=== PATIENT | male | born 1980 | race Caucasian/White ===

== ENCOUNTER 2016-07-22 16:16 | Inpatient (IN) | payer BC ==
[~2016-07-22] VITALS: Ht 172.7 cm; Wt 74.9 kg
[~2016-07-22 16:16] MED LIST: LACO100T2 PO; OMEP40CA52 PO; ONDA-55 PO; OXCA300T18 PO
--- OUTSIDE RECORDS SUMMARY | 2016-07-22 16:23 | XMS REPORT | Continuity of Care Document ---
Author Author [facility] Organization [facility] Address Unknown Phone Unavailable Support Name Relationship Address Phone RADHA TERESA DO Caregiver [address] [place] [phone] DENISE GAFFNEY MD Caregiver [address] [place] [phone] USMAN MILLER Next Of Kin [address] [address] Insurance Providers Payer Name Policy Number Subscriber Name Relationship [facility] [id number] Iliana Miller 17 Self Advance Directives Directive Response Recorded Date/Time Advanced Directives Type None 11/28/13 2:51pm Ordered Resuscitation Status Full Code 11/28/13 3:20pm Chief Complaint and Reason for Visit Chief Complaint NAUSEA,VOMITING, ACUTE DEHYDRATION Reason for Visit Nausea with Vomiting Dehydration Problems Medical Problems Problem Onset Date Status Nausea with Vomiting Unknown Active Dehydration Unknown Active Medications Medication Dose Route Sig Days/Qty Instructions Order Date Discontinued Date Status Oxcarbazepine 150 Mg PO TWICE A DAY 06/02/11 06/02/13 Discontinued Social History Social History Problem Response Recorded Date/Time Smoking Status Current every day smoker 11/28/2013 2:51pm Chewing Tobacco Status No 11/28/2013 10:10am Hx Substance Use No 11/28/2013 10:10am Hx Alcohol Use Y DAILY 11/28/2013 10:10am Has the pt used tobacco in the last 12 months Yes 11/28/2013 2:51pm Query Response Start Date Stop Date Smoking Status Current every day smoker Hospital Discharge Instructions Instructions: Care Instructions: Reason for Hospitalization: DEHYDRATION,GASTROENTERITIS, ELEVATED AMYLASE/LIPASE I was in the hospital because (patient own words): CAUGHT THE STOMACH BUG Follow Up Appointments: Follow up in 1 week. Need to do CMP, amylase and lipase in the office. Follow up appointment made on 12/05/13 at 10:00am with Dr. Teresa Patient Instructions: Drink lots of fluids. Rest. Condition at time of discharge: Good Care Plan Discharge Patient: Goal: Understand discharge plan Patient Instructions: see patient instructions Discharge Patient: Goal: Understand discharge plan Patient Instructions: see patient instructions Problem: see problem list Call your Surgeon if you have: 1.Chest pain, difficulty breathing, fever>100.5 degrees, chills, heart rate >100, confusion, or persistent nausea/vomitting. 2.Severe pain, swelling, redness, or warmth in either of your legs. 3.During office hours, call [phone] 4. After hours, please call [facility] at [phone], and have the separator operator shellfish meats page your Surgeon IN THE EVENT OF AN EMERGENCY, seek medical care at the nearest Emergency Room Condition at time of discharge: Good Care Plan Discharge Patient: Goal: Maximum functional status Patient Instructions: see patient instructions Condition at time of discharge: Good Care Plan Discharge Patient: Goal: Understand discharge plan Patient Instructions: see patient instructions Goal: Understand discharge plan Patient Instructions: see patient instructions Plan of Care Discharge Date 11/29/13 2:55pm Disposition 01 DISCHARGED HOME, SELF-CARE Instructions/Education Provided DI for Dehydration -- Adult Prescriptions See Medications Section Functional Status Query Response Date Recorded Physical Hygiene Self November 29, 2013 1:27pm Disabilities None November 29, 2013 1:27pm Devices Used None November 29, 2013 1:27pm Dressing Self November 29, 2013 1:27pm Ambulation Self November 29, 2013 1:27pm Diet Self November 29, 2013 1:27pm Mental Status Alert Oriented November 29, 2013 1:27pm Disabilities None November 29, 2013 1:27pm Devices Used None November 29, 2013 1:27pm Physical Hygiene Self November 29, 2013 1:27pm Dressing Self November 29, 2013 1:27pm Ambulation Self November 29, 2013 1:27pm Diet Self November 29, 2013 1:27pm Allergies, Adverse Reactions, Alerts Allergen Type Severity Reaction Status Last Updated No Known Allergies Active 11/28/13 Immunizations Name Given Type Hx Influenza Vaccination No Historical Hx Pneumococcal Vaccination No Historical Hx Influenza Vaccination No Historical Vital Signs Acute Vital Signs Vital Response Date/Time Temperature (Fahrenheit) 97.2 deg F (96.8 - 99.1) Temperature (Calculated Celsius) 36.54178 degrees C (36.0 - 37.3) Temperature Source Oral Pulse Rate (adult) 70 bpm (60 - 100) Respiratory Rate 17 breaths/min (10 - 20) Height 5 ft 9 in Weight 158 lb Body Mass Index 23.0 kg/m^2 Results Test Source Date Result Interp. Ref. Range Comments Acetone Level June 02, 2013 9:35am 1+ - Alanine Aminotransferase (ALT/SGPT) November 29, 2013 4:40am 128 U/L H 21- 72 Albumin November 29, 2013 4:40am 3.2 G/DL L 3.5-5.0 Albumin/Globulin Ratio November 29, 2013 4:40am 1.5 RATIO N 1.1-2.2 Alcohol, Quantitative November 28, 2013 10:34am 36 MG/DL - Alkaline Phosphatase November 29, 2013 4:40am 58 U/L DN 38-126 Amylase Level November 29, 2013 4:40am 81 U/L DN 30-110 Anion Gap November 29, 2013 4:40am 10 MEQ/L N 5-15 Aspartate Amino Transf (AST/SGOT) November 29, 2013 4:40am 201 U/L DH 17-59 BUN/Creatinine Ratio November 29, 2013 4:40am 16 RATIO N 6-26 Band Neutrophils # November 28, 2013 10:09am 0.9 T/MM3 - Band Neutrophils % November 28, 2013 10:09am 6.0 % N 0-6 Basophils # (Auto) November 29, 2013 4:40am 0.0 T/MM3 N 0-0.2 Basophils (%) (Auto) November 29, 2013 4:40am 0.6 % N 0-2 Blood Urea Nitrogen November 29, 2013 4:40am 18.0 MG/DL N 9-20 Calcium Level November 29, 2013 4:40am 8.4 MG/DL DN 8.4-10.2 Calculated Osmolality November 29, 2013 4:40am 261 MOSM/KG N 261-280 Carbon Dioxide Level November 29, 2013 4:40am 29 MEQ/L DN 22-30 Chemistry Specimen Hemolysis November 29, 2013 4:40am < 15 0-25 0-25: No Hemolysis.26-70: Slight Hemolysis - can falsely elevate K and Urine Protein. 71-285: Moderate Hemolysis - can falsely elevate K, Troponin I, CA 19-9, PTH, CSF GLucose, and Urine Protein, and can falsely decrease Phenytoin. 286-999: Gross Hemolysis - can falsely elevate K, Troponin I, CA 19-9, PTH, CSF Glucose, and Urine Protine, and can falsely decrease Phenytoin. Recommend specimen recollection. Chloride Level November 29, 2013 4:40am 96 MEQ/L DL 98-107 Conjugated Bilirubin June 01, 2011 11:00pm 0.00 MG/DL N 0.00-0.30 Creatinine November 29, 2013 4:40am 1.1 MG/DL DN 0.8-1.5 Eosinophils # (Auto) November 29, 2013 4:40am 0.0 T/MM3 N 0-0.5 Eosinophils (%) (Auto) November 29, 2013 4:40am 0.6 % N 0-4 Globulin November 29, 2013 4:40am 2.2 G/DL L 2.4-3.6 Glomerular Filtration Rate Calc November 29, 2013 4:40am 77 - Glucose Level November 29, 2013 4:40am 85 MG/DL N 75-110 Group A Streptococcus Screen June 02, 2013 12:05pm Negative - Strep culture confirmation to follow Hematocrit November 29, 2013 4:40am 38.1 % DL 41-53 Hemoglobin November 29, 2013 4:40am 12.8 GM/DL DL 13.5-17.5 Icterus Index November 29, 2013 4:40am < 2 0-7 Immature Granulocyte # (Auto) November 29, 2013 4:40am 0.03 T/MM3 N 0.00- 0.03 Immature Granulocyte % (Auto) November 29, 2013 4:40am 0.4 % N 0.0-0.5 Lab Scanned Report June 04, 2010 10:42pm LAB TEST FORM REQUEST [id number] - Lipase November 29, 2013 12:15pm 561 U/L H 23-300 Lymphocytes # (Auto) November 29, 2013 4:40am 1.2 T/MM3 N 1-4.8 Lymphocytes # (Manual) November 28, 2013 10:09am 1.2 T/MM3 N 1-4.8 Lymphocytes % (Manual) November 28, 2013 10:09am 8.0 % L 23-45 Lymphocytes (%) (Auto) November 29, 2013 4:40am 17.7 % L 23-45 Mean Corpuscular Hemoglobin November 29, 2013 4:40am 33.9 UUG N 26-34 Mean Corpuscular Hemoglobin Concent November 29, 2013 4:40am 33.6 GM/DL N 31 -37 Mean Corpuscular Volume November 29, 2013 4:40am 100.8 UM3 H 80-100 Mean Platelet Volume November 29, 2013 4:40am 10.5 UM3 N 9.4-12.4 Monocytes # (Auto) November 29, 2013 4:40am 0.9 T/MM3 H 0-0.8 Monocytes # (Manual) November 28, 2013 10:09am 1.1 T/MM3 H 0-0.8 Monocytes % (Manual) November 28, 2013 10:09am 7.0 % N 0-9.0 Monocytes (%) (Auto) November 29, 2013 4:40am 13.0 % H 0-9.0 UD-Wgq-B-Type Natriuretic Peptide June 02, 2011 4:35am 454 PG/ML H 0- 175 Rule in cut points: <50 years old=450; 50-75 years old=900; >75 years old=1800; When utilizing ProBNP rule-in cut points, adjustment for impaired renal function is typically not required. Neutrophils # (Auto) November 29, 2013 4:40am 4.7 T/MM3 N 1.8-7.7 Neutrophils # (Manual) November 28, 2013 10:09am 11.9 T/MM3 H 1.8-7.7 Neutrophils % (Manual) November 28, 2013 10:09am 79.0 % H 33-66 Neutrophils (%) (Auto) November 29, 2013 4:40am 67.7 % H 33-66 Platelet Count November 29, 2013 4:40am 106 T/MM3 L 130-400 Potassium Level November 29, 2013 4:40am 3.8 MEQ/L DN 3.6-5 RDW Standard Deviation November 29, 2013 4:40am 44.8 FL N 36.9-50.2 Red Blood Count November 29, 2013 4:40am 3.78 M/MM3 L 4.50-5.90 Sodium Level November 29, 2013 4:40am 135 MEQ/L N 134-144 Total Bilirubin November 29, 2013 4:40am 1.60 MG/DL H 0.20-1.30 Total Protein November 29, 2013 4:40am 5.4 G/DL L 6.3-8.2 Turbidity November 29, 2013 4:40am < 20 0-20 Unconjugated Bilirubin June 01, 2011 11:00pm 1.20 MG/DL H 0.00-1.10 Urine Bacteria November 28, 2013 12:35pm 1+ H - Has specimen been collected /obtained? Y Urine Bilirubin November 28, 2013 12:35pm 1+ H - Has specimen been collected/obtained? Y Urine Blood November 28, 2013 12:35pm 3+ H - Has specimen been collected/ obtained? Y Urine Collection Type November 28, 2013 12:35pm Voided-not cc-midstr - Has specimen been collected/obtained? Y Urine Color November 28, 2013 12:35pm Yellow - Has specimen been collected/obtained? Y Urine Culture Indicated November 28, 2013 12:35pm Cult not indicated - Has specimen been collected/obtained? Y Urine Glucose (UA) November 28, 2013 12:35pm Negative - Has specimen been collected/obtained? Y Urine Hyaline Casts November 28, 2013 12:35pm 30-50 /LPF - Has specimen been collected/obtained? Y Urine Ketones November 28, 2013 12:35pm 3+ H - Has specimen been collected/ obtained? Y Urine Leukocyte Esterase November 28, 2013 12:35pm Negative - Has specimen been collected/obtained? Y Urine Mucus June 02, 2013 11:40am Present - Has specimen been collected/obtained? Y Urine Nitrite November 28, 2013 12:35pm Negative - Has specimen been collected/obtained? Y Urine Protein November 28, 2013 12:35pm 2+ H - Has specimen been collected/ obtained? Y Urine RBC November 28, 2013 12:35pm 3-5 /HPF H - Has specimen been collected/obtained? Y Urine Specific [place] November 28, 2013 12:35pm >=1.030 H - Has specimen been collected/obtained? Y Urine Squamous Epithelial Cells June 02, 2013 11:40am 5-10 - Has specimen been collected/obtained? Y Urine Turbidity November 28, 2013 12:35pm Clear - Has specimen been collected/obtained? Y Urine Urobilinogen November 28, 2013 12:35pm 0.2 EU/DL - Has specimen been collected/obtained? Y Urine WBC November 28, 2013 12:35pm 0-1 /HPF - Has specimen been collected/obtained? Y Urine pH November 28, 2013 12:35pm 6.0 - Has specimen been collected/ obtained? Y White Blood Count November 29, 2013 4:40am 6.9 T/MM3 DN 4.5-11.0 Group A Streptococcus Culture Throat June 02, 2013 12:19pm Urine Culture Urine, Clean Catch-Midstream June 02, 2013 12:04pm Gram Positive [place] Procedures No known history of procedures. Encounters Encounter Location Date/Time Discharged Inpatient [facility] 11/28/13 1:00pm Recent Diagnosis Nausea with Vomiting Dehydration
--- OUTSIDE RECORDS SUMMARY | 2016-07-22 16:23 | XMS REPORT | Continuity of Care Document ---
Author Author [facility] Organization [place] [facility] Address Unknown Phone Unavailable Support Name Relationship Address Phone GILBERTO JOHNSON MD Caregiver [address] [place] [address] Unavailable DENISE GAFFNEY MD Caregiver [address] [place] [address] Unavailable AILEEN ONEILL Next Of Kin [address] [place], [place] [id number] Insurance Providers Guarantor TeresitaIliana Michi Address [address] [place] [address] Email [email or web address] Policy Number [id number] Subscriber's Name Iliana Miller Relationship 18 Self Group Number [id number] Advance Directives Directive Response Recorded Date/Time Advanced Directives Type None 11/30/13 10:45pm Ordered Resuscitation Status Full Code 11/28/13 3:20pm Chief Complaint and Reason for Visit Chief Complaint Nausea,Vomiting,Diarrhea Reason for Visit Seizure disorder Dehydration Problems Active Problems Medical Problem Onset Date Status Dehydration Unknown Acute Nausea with Vomiting Unknown Acute Seizure Unknown Acute Seizure Unknown Acute Past Problems Medical Problem Onset Date Elevated LFTs Unknown Seizure disorder Unknown UTI (urinary tract infection) Unknown Medications Current Home Medications Medication Dose Units Route Directions Days Qty Instructions Start Date Lacosamide (Vimpat) 100 Mg Tablet 100 Mg Oral Twice A Day Omeprazole 40 Mg Capsule. 40 Mg Oral Before Breakfast 07/12/16 Ondansetron Hcl 4 Mg Tablet 4 Mg Oral Four Times Daily as needed for Nausea &/Or Vomiting 07/12/16 Oxcarbazepine 300 Mg Tablet 1 Tab Oral Twice A Day 60 Tablet Past Home Medications Medication Directions Ordered Status Oxcarbazepine (Trileptal) 150 Mg Tablet, 150 Mg Oral Twice A Day 06/02/11 Discontinued Social History Social History Problem Response Recorded Date/Time Onset Date Status Chewing Tobacco Status No 11/30/2013 10:45pm Not Applicable Not Applicable Hx Substance Use No 07/12/2016 2:32pm Not Applicable Not Applicable Hx Alcohol Use Y 2 DAYS AGO - FEW TIMES A WEEK 07/12/2016 2:32pm Not Applicable Not Applicable Has the pt used tobacco in the last 12 months Yes 11/28/2013 2:51pm Not Applicable Not Applicable Tobacco Usage smoke 11/28/2013 10:43am Not Applicable Not Applicable Query Response Start Date Stop Date Smoking Status Current every day smoker Hospital Discharge Instructions No hospital discharge instructions. Plan of Care Discharge Date 07/12/16 4:23pm Disposition 01 DISCHARGED HOME, SELF-CARE Condition at Discharge Improved Instructions/Education Provided Acute Nausea and Vomiting (ED) Recurrent Seizures in Adults (ED) Forms Provided Return to Work/School Permit Prescriptions See Medication Section Referrals GILBERTO JOHNSON MD Address: [address] [place] [address] [place] [phone] Additional Instructions/Education 1. You need to cut down on your dose of Vimpat to 50 mg twice daily for seven more days, then discontinue. (50 mg is one half of the 100 mg tablets you currently have) 2. Fill prescription for Trileptal and start taking that as soon as you fill it. It is okay to take the reduced dose of Vimpat and Trileptal at the same time. 3. Take the Zofran you have at home as needed for nausea/vomiting. Follow up with your primary care doctor or Dr. Plummer for any further problems you have with these symptoms. 4. Focus on drinking clear liquids for the next 24 hours to help your stomach settle down. Care Plan and Goals Physician Care Plan Problem: Dehydration, Seizure disorder Goal: Follow up with primary care provider Instructions: Take medications and follow care plan as discussed/written Functional Status No functional status results. Allergies, Adverse Reactions, Alerts No known allergies. Immunizations Query Response on File Recorded Date/Time Hx Influenza Vaccination No 11/30/13 10:45pm Hx Pneumococcal Vaccination No 11/30/13 10:45pm Hx Influenza Vaccination No 11/30/13 10:45pm Influenza Vaccine Hx NOT YET REC'D THIS SEASON 07/12/16 2:32pm Vital Signs Acute Vital Signs Vital Response Date/Time Temperature (Fahrenheit) 97.5 deg F (96.8 - 99.1) 07/12/2016 4:23pm Temperature (Calculated Celsius) 36.44010 degrees C (36.0 - 37.3) 07/12/2016 4:23pm Pulse Rate (adult) 92 bpm (60 - 100) 07/12/2016 4:23pm Respiratory Rate 16 breaths/min (10 - 20) 07/12/2016 4:23pm O2 Sat by Pulse Oximetry 95 % (90 - 100) 07/12/2016 4:23pm Blood Pressure 128/78 mm Hg 07/12/2016 4:23pm Height (Feet) 5 feet 07/12/2016 1:30pm Height (Inches) 9.00 inches 07/12/2016 1:30pm Weight (Kilograms) 73.000 kg 07/12/2016 1:30pm Body Mass Index (BMI) 23.0 07/12/2016 1:30pm Results Laboratory Results Test Name Result Units Flags Reference Collection Date/Time Result Date/ Time Comments Total Bilirubin 2.80 MG/DL H 0.20-1.30 04/21/2016 10:0104/21/2016 10: 18am Alkaline Phosphatase 76 U/L 38-126 04/21/2016 10:0104/21/2016 10: 18am Total Protein 7.7 G/DL 6.3-8.2 04/21/2016 10:0104/21/2016 10:18am Albumin 4.8 G/DL 3.5-5.0 04/21/2016 10:0104/21/2016 10:18am Globulin 2.9 G/DL 2.4-3.6 04/21/2016 10:0104/21/2016 10:18am Albumin/Globulin Ratio 1.7 RATIO 1.1-2.2 04/21/2016 10:01am 04/21/2016 10:18am Aspartate Amino Transf (AST/SGOT) 214 U/L H 17-59 04/21/2016 10:01am 10:18am Alanine Aminotransferase (ALT/SGPT) 122 U/L H 21-72 04/21/2016 10:01am 04/21/2016 10:18am Alcohol, Quantitative <10 MG/DL <10 04/21/2016 10:0104/21/2016 10: 18am Urine Collection Type CLEANCATCH-MIDSTREAM 04/21/2016 10:0104/21 10:29am Urine Color ORANGE YELLOW 04/21/2016 10:0104/21/2016 10:29am Urine Turbidity CLEAR CLEAR 04/21/2016 10:0104/21/2016 10:29am Urine Specific [place] 1.030 H 1.015-1.025 04/21/2016 10:012015 10:29am Urine pH 6.0 5.0-8.0 04/21/2016 10:0104/21/2016 10:29am Urine Leukocyte Esterase NEGATIVE NEGATIVE 04/21/2016 10:012015 10:29am Urine Nitrite POSITIVE A NEGATIVE 04/21/2016 10:0104/21/2016 10: 29am Urine Protein 2+ A NEGATIVE 04/21/2016 10:0104/21/2016 10:29am Urine Glucose (UA) NEGATIVE NEGATIVE 04/21/2016 10:0104/21/2016 10 :29am Urine Ketones NEGATIVE NEGATIVE 04/21/2016 10:0104/21/2016 10: 29am Urine Urobilinogen NORMAL EU/DL NORMAL 04/21/2016 10:0104/21/2016 10 :29am Urine Bilirubin 1+ A NEGATIVE 04/21/2016 10:0104/21/2016 10:29am Urine Blood 2+ A NEGATIVE 04/21/2016 10:04/21/2016 10:29am Urine WBC 0-1 /HPF 0-5 04/21/2016 10:0104/21/2016 10:33am Urine RBC 0-1 /HPF 0-3 04/21/2016 10:0104/21/2016 10:33am Urine Squamous Epithelial Cells NONE SEEN 04/21/2016 10:012015 10:33am Urine Bacteria 3+ H NEGATIVE 04/21/2016 10:0104/21/2016 10:33am Urine Mucus PRESENT 04/21/2016 10:0104/21/2016 10:33am Urine Hyaline Casts 1-3 /LPF 04/21/2016 10:0104/21/2016 10:33am Urine Culture Indicated CULT REFLEXED &SETUP 04/21/2016 10:01 10:33am Levetiracetam (Keppra) Level 3.5 mcg/mL L 04/21/2016 10:01am 2015 2:21pm Reference Range: 12.0 - 46.0 ADDITIONAL INFORMATION This test was developed and its performance characteristics determined by [facility] in a manner consistent with CLIA requirements. This test has not been cleared or approved by the U.S. Food and Drug Administration. Test Performed by: [place] [address] First Sampler: Thad Sanchez II, M.D., Ph.D. [place] [address] Clinique Counter Manager Laura Norman MD White Blood Count 5.6 T/MM3 4.5-11.0 07/12/2016 2:1007/12/2016 2: 19pm Red Blood Count 4.43 M/MM3 L 4.50-5.90 07/12/2016 2:07/12/2016 2: 19pm Hemoglobin 15.4 GM/DL 13.5-17.5 07/12/2016 2:07/12/2016 2:19pm Hematocrit 43.6 % 41-53 07/12/2016 2:07/12/2016 2:19pm Mean Corpuscular Volume 98.4 UM3 80-100 07/12/2016 2:07/12/2016 2: 19pm Mean Corpuscular Hemoglobin 34.8 UUG H 26-34 07/12/2016 2:2016 2:19pm Mean Corpuscular Hemoglobin Concent 35.3 GM/DL 31-37 07/12/2016 2:07/12/2016 2:19pm RDW Standard Deviation 52.7 FL H 36.9-50.2 07/12/2016 2:07/12/2016 2:19pm Platelet Count 140 T/MM3 130-400 07/12/2016 2:07/12/2016 2:19pm Mean Platelet Volume 9.7 UM3 9.4-12.4 07/12/2016 2:07/12/2016 2: 19pm Neutrophils (%) (Auto) 54.2 % 33-66 07/12/2016 2:07/12/2016 2: 19pm Lymphocytes (%) (Auto) 30.5 % 23-45 07/12/2016 2:07/12/2016 2: 19pm Monocytes (%) (Auto) 14.2 % H 0-9.0 07/12/2016 2:07/12/2016 2:19pm Eosinophils (%) (Auto) 0.0 % 0-4 07/12/2016 2:07/12/2016 2:19pm Basophils (%) (Auto) 0.7 % 0-2 07/12/2016 2:07/12/2016 2:19pm Immature Granulocyte % (Auto) 0.4 % 0.0-0.5 07/12/2016 2:2016 2:19pm Absolute Neutrophils (auto) 3.0 T/MM3 1.8-7.7 07/12/2016 2:2016 2:19pm Absolute Lymphocytes (auto) 1.7 T/MM3 1-4.8 07/12/2016 2:2016 2:19pm Absolute Monocytes (auto) 0.8 T/MM3 0-0.8 07/12/2016 2:07/12/2016 2:19pm Absolute Eosinophils (auto) 0.0 T/MM3 0-0.5 07/12/2016 2:2016 2:19pm Absolute Basophils (auto) 0.0 T/MM3 0-0.2 07/12/2016 2:07/12/2016 2:19pm Absolute Immature Granulocyte (auto 0.02 T/MM3 0.00-0.03 07/12/2016 2: 07/12/2016 2:19pm Icterus Index < 2 0-7 07/12/2016 2:07/12/2016 2:28pm Chemistry Specimen Hemolysis < 15 0-25 07/12/2016 2:07/12/2016 2 :28pm 0-25: Specimen Exhibited No Hemolysis. Turbidity < 20 0-20 07/12/2016 2:07/12/2016 2:28pm Sodium Level 134 MEQ/L 134-144 07/12/2016 2:10pm 07/12/2016 2:28pm Potassium Level 3.2 MEQ/L L 3.6-5 07/12/2016 2:10pm 07/12/2016 2:28pm Chloride Level 86 MEQ/L L 98-107 07/12/2016 2:10pm 07/12/2016 2:28pm Carbon Dioxide Level 27 MEQ/L 22-30 07/12/2016 2:1007/12/2016 2: 28pm Anion Gap 21 MEQ/L H 5-15 07/12/2016 2:10pm 07/12/2016 2:28pm Blood Urea Nitrogen 12.0 MG/DL 9-20 07/12/2016 2:10pm 07/12/2016 2: 28pm Creatinine 0.8 MG/DL 0.8-1.5 07/12/2016 2:10pm 07/12/2016 2:28pm BUN/Creatinine Ratio 15 RATIO 6-26 07/12/2016 2:1007/12/2016 2:28pm Glomerular Filtration Rate Calc 109 07/12/2016 2:1007/12/2016 2: 28pm Glucose Level 97 MG/DL 75-110 07/12/2016 2:10pm 07/12/2016 2:28pm Calculated Osmolality 258 MOSM/KG L 261-280 07/12/2016 2:10pm 2016 2:28pm Calcium Level 8.9 MG/DL 8.4-10.2 07/12/2016 2:10pm 07/12/2016 2:28pm Microbiology Results Procedure Source Organism/Result Collection Date/Time Result Date/Time Result Status Urine Culture Urine, Clean Catch-Midstream MIXED EDWARD 04/21/2016 10:33am 04/23/2016 8:02am Final Procedures Procedure Status Date Provider(s) Routine venipuncture Completed 04/21/16 Comprehen metabolic panel Completed 04/21/16 Drug scrn suyapa levetiracetam Completed 04/21/16 Drug screen quantalcohols Completed 04/21/16 Urinalysis auto w/scope Completed 04/21/16 Complete cbc w/auto diff wbc Completed 04/21/16 Urine culture/colony count Completed 04/21/16 Hydrate iv infusion add-on Completed 04/21/16 Ther/proph/diag inj iv push Completed 04/21/16 Emergency dept visit Completed 04/21/16 LEVETIRACETAM INJ 500MF/5ML Completed 04/21/16 [id number]"INFUSION, NORMAL SALINE SOLUTION , 250 CC" Completed 04/21/16 Encounters Encounter Location Arrival/Admit Date Discharge/Depart Date Attending Provider Departed Emergency Room [facility] 07/12/16 1:28pm 07/12/16 4: 23pm DENISE GAFFNEY MD Departed Emergency Room [facility] 04/21/16 9:28am 04/21/16 10: 55am DEBI CHUNG DO Recent Diagnosis
--- OUTSIDE RECORDS SUMMARY | 2016-07-22 16:23 | XMS REPORT | Continuity of Care Document ---
Author Author [facility] Organization [facility] Address Unknown Phone Unavailable Support Name Relationship Address Phone OLGA LIDIA BLANCHARD MD Caregiver [facility] [address] [place] [address] Unavailable ER, DOC Caregiver Unknown Unavailable RADHA TERESA DO Caregiver [address] [place] [phone] USMAN MILLER Next Of Kin [address] [place] [address] Insurance Providers Payer Name Policy Number Subscriber Name Relationship [facility] [id number] Iliana Miller 17 Self Advance Directives Directive Response Recorded Date/Time Advanced Directives Type None 11/30/13 10:45pm Ordered Resuscitation Status Full Code 11/28/13 3:20pm Chief Complaint and Reason for Visit Chief Complaint Nausea,Vomiting,Diarrhea Reason for Visit [id number] WITH VOMITING Dehydration Problems Medical Problems Problem Onset Date Status Nausea with Vomiting Unknown Active Dehydration Unknown Active Seizure Unknown Active Seizure Unknown Active Medications Medication Dose Route Sig Days/Qty Instructions Order Date Discontinued Date Status Oxcarbazepine 150 Mg PO TWICE A DAY 06/02/11 06/02/13 Discontinued Social History Social History Problem Response Recorded Date/Time Smoking Status Current every day smoker 11/30/2013 10:45pm Chewing Tobacco Status No 11/30/2013 10:45pm Hx Substance Use No 11/30/2013 10:45pm Hx Alcohol Use Y quit first week of November 2013 11/30/2013 10:45pm Has the pt used tobacco in the [...] of Care Discharge Date 11/29/13 2:55pm Disposition 02 TO [place] [facility] [place] Condition at Discharge Stable Instructions/Education Provided DI for Dehydration -- Adult Prescriptions See Medications Section Referrals RADHA TERESA DO Functional Status Query Response Date Recorded Physical Hygiene Self November 30, 2013 10:45pm Disabilities None November 30, 2013 10:45pm Ambulation Self November 30, 2013 10:45pm Diet Self November 30, 2013 10:45pm Mental Status Alert Oriented November 30, 2013 10:45pm Disabilities None November 30, 2013 10:45pm Physical Hygiene Self November 30, 2013 10:45pm Ambulation Self November 30, 2013 10:45pm Diet Self November 30, 2013 10:45pm Allergies, Adverse Reactions, Alerts Allergen Type Severity Reaction Status Last Updated No Known Allergies Active 11/30/13 Immunizations Name Given Type Hx Influenza Vaccination No Historical Hx Pneumococcal Vaccination No Historical Hx Influenza Vaccination No Historical Vital Signs Acute Vital Signs Vital Response Date/Time Temperature (Fahrenheit) 97.7 deg F (96.8 - 99.1) Temperature (Calculated Celsius) 36.40350 degrees C (36.0 - 37.3) Pulse Rate (adult) 88 bpm (60 - 100) Respiratory Rate 16 breaths/min (10 - 20) O2 Sat by Pulse Oximetry 98 % (90 - 100) Blood Pressure 118/88 mm Hg Height 5 ft 9 in Weight 156 lb Body Mass Index 23.0 kg/m^2 Results Test Source Date Result Interp. Ref. Range Comments Acetone Level June 02, 2013 9:35am 1+ - Alanine Aminotransferase (ALT/SGPT) November 30, 2013 11:05pm 216 U/L H 21- 72 Albumin November 30, 2013 11:05pm 4.0 G/DL N 3.5-5.0 Albumin/Globulin Ratio November 30, 2013 11:05pm 1.5 RATIO N 1.1-2.2 Alcohol, Quantitative November 30, 2013 11:05pm <10 MG/DL - Alkaline Phosphatase November 30, 2013 11:05pm 81 U/L DN 38-126 Amylase Level November 29, 2013 4:40am 81 U/L DN 30-110 Anion Gap November 30, 2013 11:05pm 14 MEQ/L N 5-15 Aspartate Amino Transf (AST/SGOT) November 30, 2013 11:05pm 280 U/L H 17-59 BUN/Creatinine Ratio November 30, 2013 11:05pm 12 RATIO N 6-26 Band Neutrophils # November 28, 2013 10:09am 0.9 T/MM3 - Band Neutrophils % November 28, 2013 10:09am 6.0 % N 0-6 Basophils # (Auto) November 30, 2013 11:05pm 0.1 T/MM3 N 0-0.2 Basophils (%) (Auto) November 30, 2013 11:05pm 1.2 % N 0-2 Blood Urea Nitrogen November 30, 2013 11:05pm 11.0 MG/DL N 9-20 Calcium Level November 30, 2013 11:05pm 9.9 MG/DL DN 8.4-10.2 Calculated Osmolality November 30, 2013 11:05pm 254 MOSM/KG L 261-280 Carbon Dioxide Level November 30, 2013 11:05pm 24 MEQ/L N 22-30 Chloride Level November 30, 2013 11:05pm 93 MEQ/L L 98-107 Conjugated Bilirubin June 01, 2011 11:00pm 0.00 MG/DL N 0.00-0.30 Creatinine November 30, 2013 11:05pm 0.9 MG/DL DN 0.8-1.5 Eosinophils # (Auto) November 30, 2013 11:05pm 0.1 T/MM3 N 0-0.5 Eosinophils (%) (Auto) November 30, 2013 11:05pm 1.1 % N 0-4 Globulin November 30, 2013 11:05pm 2.7 G/DL N 2.4-3.6 Glucose Level November 30, 2013 11:05pm 134 MG/DL H 75-110 Group A Streptococcus Screen June 02, 2013 12:05pm Negative - Strep culture confirmation to follow Hematocrit November 30, 2013 11:05pm 42.5 % DN 41-53 Hemoglobin November 30, 2013 11:05pm 14.5 GM/DL DN 13.5-17.5 Lipase November 29, 2013 12:15pm 561 U/L H 23-300 Lymphocytes # (Auto) November 30, 2013 11:05pm 1.7 T/MM3 N 1-4.8 Lymphocytes # (Manual) November 28, 2013 10:09am 1.2 T/MM3 N 1-4.8 Lymphocytes % (Manual) November 28, 2013 10:09am 8.0 % L 23-45 Lymphocytes (%) (Auto) November 30, 2013 11:05pm 17.9 % L 23-45 Mean Corpuscular Hemoglobin November 30, 2013 11:05pm 33.3 UUG N 26-34 Mean Corpuscular Hemoglobin Concent November 30, 2013 11:05pm 34.1 GM/DL N 31-37 Mean Corpuscular Volume November 30, 2013 11:05pm 97.5 UM3 N 80-100 Mean Platelet Volume November 30, 2013 11:05pm 11.1 UM3 N 9.4-12.4 Monocytes # (Auto) November 30, 2013 11:05pm 1.3 T/MM3 H 0-0.8 Monocytes # (Manual) November 28, 2013 10:09am 1.1 T/MM3 H 0-0.8 Monocytes % (Manual) November 28, 2013 10:09am 7.0 % N 0-9.0 Monocytes (%) (Auto) November 30, 2013 11:05pm 13.3 % H 0-9.0 Neutrophils # (Auto) November 30, 2013 11:05pm 6.4 T/MM3 N 1.8-7.7 Neutrophils # (Manual) November 28, 2013 10:09am 11.9 T/MM3 H 1.8-7.7 Neutrophils % (Manual) November 28, 2013 10:09am 79.0 % H 33-66 Neutrophils (%) (Auto) November 30, 2013 11:05pm 65.9 % N 33-66 Platelet Count November 30, 2013 11:05pm 118 T/MM3 L 130-400 Potassium Level November 30, 2013 11:05pm 3.4 MEQ/L L 3.6-5 RDW Standard Deviation November 30, 2013 11:05pm 42.2 FL N 36.9-50.2 Red Blood Count November 30, 2013 11:05pm 4.36 M/MM3 L 4.50-5.90 Sodium Level November 30, 2013 11:05pm 131 MEQ/L L 134-144 Total Bilirubin November 30, 2013 11:05pm 0.90 MG/DL N 0.20-1.30 Total Protein November 30, 2013 11:05pm 6.7 G/DL N 6.3-8.2 Unconjugated Bilirubin June 01, 2011 11:00pm 1.20 [...] Has specimen been collected/obtained? Y Urine Specific [place] November 28, 2013 12:35pm >=1.030 H - [...] collected/ obtained? Y White Blood Count November 30, 2013 11:05pm 9.7 T/MM3 DN 4.5-11.0 Chemistry Specimen Hemolysis November 30, 2013 11:05pm < 15 0-25 0-25: No Hemolysis.26-70: Slight [...] can falsely decrease Phenytoin. Recommend specimen recollection. Lab Scanned Report June 04, 2010 10:42pm LAB TEST FORM REQUEST [id number] - Turbidity November 30, 2013 11:05pm < 20 0-20 Glomerular Filtration Rate Calc November 30, 2013 11:05pm 97 - Immature Granulocyte # (Auto) November 30, 2013 11:05pm 0.06 T/MM3 H 0.00- 0.03 Immature Granulocyte % (Auto) November 30, 2013 11:05pm 0.6 % H 0.0-0.5 Icterus Index November 30, 2013 11:05pm < 2 0-7 AQ-Qbc-H-Type Natriuretic Peptide June 02, 2011 4:35am 454 PG/ML H 0- 175 Rule in cut points: <50 years old=450; 50-75 years old=900; >75 years old=1800; When utilizing ProBNP rule-in cut points, adjustment for impaired renal function is typically not required. Group A Streptococcus Culture Throat June 02, 2013 12:19pm Urine Culture Urine, Clean Catch-Midstream June 02, 2013 12:04pm Gram Positive Chacorta Procedures No known history of procedures. Encounters Encounter Location Date/Time Departed Emergency Room [facility] 11/30/13 10:19pm Discharged Inpatient [facility] 11/28/13 1:00pm Recent Diagnosis
--- NOTE | 2016-07-22 16:38 | ERPDOC ---
Departure Disposition Decision Date: Jul 22, 2016 Disposition Decision Time: 19:43 (THIAGO DARNELL APRN) Disposition: 02 TO [facility] Impression Impression (THIAGO DARNELL APRN) Impression: Primary Impression: Encephalopathy Additional Impression: Hepatic steatosis Severity: Moderate (THIAGO DARNELL APRN) Condition: Stable Seen By: Mid-level only (THIAGO DARNELL APRN) Referrals: GILBERTO JOHNSON MD (Family) Problems/Meds/Labs Reviewed?: Yes Medications reviewed and manag: Yes (THIAGO DARNELL APRN) Follow up care ordered?: Yes Mental Status: Alert, Confused (THIAGO DARNELL APRN) HPI - General Medical General Chief Complaint: Altered Mental Status Stated Complaint: CONFUSION Time Seen by Provider: 16:36 Source: patient (take while performing trauma a with jaundice and everything helped in by ambulance, by private vehicle liver failure that) (THIAGO DARNELL APRN) Time Seen by Provider: 16:36 (SILVIANO EDEN DO) HPI - General Medical Initial Comments 35-year-old male brought to the ED by EMS with altered mental status. EMS reports that patient girlfriend reported that patient called her today wondering when she would be coming home to wrap [employer] presents. Patient arrives confused, oriented only to person. Patient on initial exam is jaundiced with scleral icterus. Patient has past medical history of alcohol abuse however patient states that he has not drank for 2 days. Patient has history of seizures was taking Keppra until May of this year and was started on Vimpat, which he took up until 4 days ago. Patient was to start Trileptal on 07-12-16 and was to decrease Vimpat and start Trileptal however patient did not start it yet. Girlfriend reports that patient has had several falls over the last few weeks the most recent one 3 weeks ago. Patient has bruising to right arm and right rib area. Patient denies any pain. After arriving patient began to vomiting. Duration: 4-6 hrs Associated Symptoms: DENIES: chest pain, cough, denies symptoms, diaphoresis, fever/chills, headaches, loss of appetite, malaise, rash, seizure, shortness of breath, syncope, weakness (THIAGO DARNELL APRN) Allergies: Coded Allergies: No Known Allergies (Unverified , 07/23/16) Past History Past Medical History Metabolic: DENIES: diabetes Hx Echocardiogram: No Respiratory: DENIES: asthma GI: GERD Neurological: seizures Psychological: alcohol abuse (THIAGO DARNELL APRN) Surgical History General: other (oral surgery) (THIAGO DARNELL APRN) Family History Family PMH: FOUND: other (THIAGO DARNELL APRN) Vaccines Hx Influenza Vaccination: No Hx Pneumococcal Vaccination: No (THIAGO DARNELL APRN) Social History # of Packs/Tins per Day: 0.5 Substance Use Type: does not use Alcohol Intake: occasionally Last Drink: days (ago) Marital Status: Single Sexuality: female partner Housing: house Service: No Current Occupational Status: employed (THIAGO DARNELL APRN) Review of Systems Unable to Obtain ROS Due to: clinical condition (THIGAO DARNELL APRN) Physical Exam General General Nourishment: well nourished, well developed, adult (THIAGO DARNELL APRN) Vitals and Pain First Documented Vital Signs Date Time Temp Pulse Resp B/P Pulse Ox O2 Delivery O2 Flow Rate FiO2 07/22/16 16:22 97.9 112 20 120/88 100 Room Air (SILVIANO EDEN DO) Vitals and Pain Weight: Kilograms: Height (feet): 5 Height (inches): 9.00 Triage Pain Scale: (THIAGO DARNELL APRN) Eyes (brief) Eyes Brief: found: EOMI, PERRL, scleral icterus (THIAGO DARNELL APRN) Eyes Abnormal Movement: FOUND: nystagmus (THIAGO DARNELL APRN) ENMT (brief) ENMT Brief: FOUND: mucosa moist, NOT FOUND: nasal exudate, nasal swelling ( THIAGO DARNELL APRN) Neck (brief) Neck: FOUND: trachea midline, NOT FOUND: adenopathy, tenderness, thyromegaly ( THIAGO DARNELL APRN) Respiratory (brief) Respiratory: FOUND: clear all sweeney, equal bilaterally, other (ecchymosis over right lateral ribs), symmetrical, NOT FOUND: tenderness (THIAGO DARNELL APRN) Cardiovascular Auscultation: FOUND: S1, S2, rate (96), regular Edema : Edema Site: bilateral Edema Location: leg Edema Degree: 0 (HTIAGO DARNELL APRN) Abdomen Palpation: FOUND: soft, NOT FOUND: hepatomegaly, other (ascities), splenomegaly , tender Auscultation: FOUND: hypoactive (x4) (THIAGO DARNELL APRN) Musculoskeletal (brief) Musculoskeletal Brief: NOT FOUND: deformity, loss of motion (THIAGO DARNELL APRN) Musculoskeletal Joint : Side: Right Joint: shoulder, elbow, wrist Joint Findings: NOT FOUND: ROM limited, deformity, instability, pain, swelling Extremity : Side: Right Extremity: arm, forearm Extremity Findings: FOUND: discoloration (ecchymosis), NOT FOUND: deformity , pain, swelling (THIAGO DARNELL ELECTRIC POWER MACHINE OPERATOR) Integumentary General: FOUND: dry, warm Color: FOUND: jaundice (THIAGO DARNELL APRN) Neurologic (brief) Neurological Brief: FOUND: CN w/o gross def to obs, motor-no gross deficits, sensory-no gross deficits (THIAGO DARNELL ELECTRIC POWER MACHINE OPERATOR) Neurologic Mental Status: FOUND: confused Cranial Nerves: NOT FOUND: facial asymmetry Motor : Motor Side: bilateral Motor Location: plaster mold maker strength Motor Degree: 5 Sensation: FOUND: soft touch intact x4 ext (THIAGO DARNELL APRN) Psychiatric (brief) Psychiatric Brief: FOUND: attentive (THIAGO DARNELL APRN) Differential Diagnoses Considering: CVA, Hypo/Hyperglycemia, Hypo/Hyperkalemia, Hypo/Hypernatremia, Intracranial Hemorrhage, Medication Effect, Metabolic, TIA (encephalopathy), Other (encephalopathy) (THIAGO DARNELL ELECTRIC POWER MACHINE OPERATOR) Progress Results/Orders Orders Procedure Category Date Status Time Iv Lock (Ed Only) EDM 07/22/16 Transmitted 16:46 Nothing By Mouth (Ed EDM 07/22/16 Transmitted Only) 16:46 Cbc W/Auto LAB 07/22/16 Complete Diff-Reflex Manual 16:46 Cmp - Comprehensive LAB 07/22/16 Complete Metabolic 16:46 Lipase LAB 07/22/16 Complete 16:46 Ammonia LAB 07/22/[address] Head W/O Contrast CT 07/22/16 Resulted Nothing By Mouth (Ed EDM 07/22/16 Transmitted Only) 16:55 Ethanol LAB 07/22/16 Complete 16:55 Drug Screen LAB 07/22/16 Complete Urine-Test At [facility] 16:55 Acetaminophen LAB 07/22/16 Complete 16:55 Salicylate LAB 07/22/16 Complete 16:55 UA, LAB 07/22/16 Complete Dip&Micro(Complete) & 17:05 Ondansetron Inj PHA 07/22/16 Complete (Zofran) 17:30 Ck - Cpk LAB 07/22/16 Complete EKG EKG 07/22/16 Taken Normal Saline PHA 07/22/16 Complete (Norm... W/Potassium 18:30 Ct Abd/Pelvis W/O CT 07/22/16 Resulted Contrast Ondansetron Inj PHA 07/22/16 Complete (Zofran) 18:45 Ns Kcl 20 Meq (Normal PHA 07/22/16 Complete Saline W/ Kcl 20 M 18:45 INR LAB 07/22/16 Complete PTT LAB 07/22/16 Complete Magnesium LAB 07/22/16 Complete Normal Saline PHA 07/22/16 Complete (Norm... W/Multi-Vit 20:00 Place In Facility As: ADMIT 07/22/16 Transmitted 19:58 (SILVIANO EDEN DO) Lab Results Laboratory Tests Test 07/22/16 17:00 07/22/16 17:04 07/22/16 17:05 07/22/16 17:43 Prothromb Time International Ratio 1.17 Activated Partial Thromboplast Time 34.3SEC White Blood Count 6.7T/MM3 Red Blood Count 3.70M/MM3 Hemoglobin 13.2GM/DL Hematocrit 36.2% Mean Corpuscular Volume 97.8UM3 Mean Corpuscular Hemoglobin 35.7UUG Mean Corpuscular Hemoglobin Concent 36.5GM/DL RDW Standard Deviation 51.7FL Platelet Count 48T/MM3 Mean Platelet Volume 12.2UM3 Immature Granulocyte % (Auto) 0.6% Neutrophils (%) (Auto) 73.2% Lymphocytes (%) (Auto) 18.9% Monocytes (%) (Auto) 6.2% Eosinophils (%) (Auto) 0.2% Basophils (%) (Auto) 0.9% Absolute Immature Granulocyte (auto 0.04T/MM3 Absolute Neutrophils (auto) 4.9T/MM3 Absolute Lymphocytes (auto) 1.3T/MM3 Absolute Monocytes (auto) 0.4T/MM3 Absolute Eosinophils (auto) 0.0T/MM3 Absolute Basophils (auto) 0.1T/MM3 Ammonia 30UMOL/L Urine Collection Type Voided-not cc-midstr Urine Color Brown Urine Turbidity Sl cloudy Urine pH 6.5 Urine Specific [place] 1.020 Urine Protein Inconcl due to color Urine Glucose (UA) Inconcl due to color Urine Ketones Inconcl due to color Urine Blood Inconcl due to color Urine Nitrite Inconcl due to color Urine Bilirubin Inconcl due to color Urine Urobilinogen Inconcl due to colorEU/DL Urine Leukocyte Esterase Inconcl due to color Urine RBC 0-1/HPF Urine WBC 1-3/HPF Urine Squamous Epithelial Cells 0-5 Urine Bacteria 2+ Urine Hyaline Casts 3-5/LPF Urine Mucus Present Urine Culture Indicated Cult not indicated Turbidity < 20 Sodium Level 130MEQ/L Potassium Level 2.8MEQ/L Chloride Level 86MEQ/L Carbon Dioxide Level 21MEQ/L Anion Gap 23MEQ/L Blood Urea Nitrogen 15.0MG/DL Creatinine 1.2MG/DL Glomerular Filtration Rate Calc 69 BUN/Creatinine Ratio 13RATIO Glucose Level 295MG/DL Calculated Osmolality 263MOSM/KG Calcium Level 8.7MG/DL Magnesium Level 1.4MG/DL Total Bilirubin 8.10MG/DL Icterus Index 3 Aspartate Amino Transf (AST/SGOT) 378U/L Alanine Aminotransferase (ALT/SGPT) 198U/L Alkaline Phosphatase 133U/L Total Creatine Kinase 114U/L Total Protein 6.4G/DL Albumin 3.5G/DL Globulin 2.9G/DL Albumin/Globulin Ratio 1.2RATIO Lipase 1726U/L Chemistry Specimen Hemolysis < 15 Salicylates Level < 1.0MG/DL Urine Opiates Screen NegativeNG/ML Urine Oxycodone Screen NegativeNG/ML Urine Methadone Screen NegativeNG/ML Urine Propoxyphene Screen NegativeNG/ML Acetaminophen Level < 10UG/ML Urine Barbiturates Screen NegativeNG/ML Urine Tricyclic Antidepressants NegativeNG/ML Urine Phencyclidine Screen NegativeNG/ML Urine Amphetamines Screen NegativeNG/ML Urine Methamphetamines Screen NegativeNG/ML Urine Benzodiazepines Screen NegativeNG/ML Urine Cocaine Screen NegativeNG/ML Urine Cannabinoids Screen NegativeNG/ML Alcohol, Quantitative <10MG/DL Lab Scanned Report REFERENCE [id number] (SILVIANO EDEN DO) Medications Current ED Medications Ondansetron HCl 4 mg 4 mg O ONCE IV Last administered on 07/22/16t 17:32; Start 07/22/16 at 17:30; Stop 07/22/16 at 17:31; Status DC Potassium Chloride/Sodium Chloride (KCl/Normal Saline IV) 1,010 ml @ 500 mls/ hr Q2H2M ONCE IV ; Start 07/22/16 at 18:30; Stop 07/22/16 at 18:39; Status DC Ondansetron HCl 4 mg 4 mg O ONCE IV Last administered on 07/22/16 18:45; Start 07/22/16 at 18:45; Stop 07/22/16 at 18:46; Status DC Potassium Chloride/Sodium Chloride (Normal Saline w/ KCl 20 Meq) 1,000 ml @ 500 mls/hr Q2H IV Last administered on 07/22/16 19:21; Start 07/22/16 at 18:45 ; Stop 07/23/16 at 00:55; Status DC (SILVIANO EDEN DO) Progress Progress Patient's vomiting improved after 8mg of zofran. WBC 6.7, no bands Hemoglobin 13.2 decreased from 07-12-16 Platelets 48 decreased from 07-12-16 Sodium 1:30 Potassium 2.8 CO2 21 BUN 15 Creatinine 1.2 Glucose 295 T. Bilirubin 8.10 increased Mar 2016 AST 378 increased from Mar 2016 ALT 198 increased from Mar 2016 Ammonia 30 Magnesium 1.4 CK 114 Lipase 1726 UDS negative Acetaminophen and ETOH <10 Urine noncontributory, inconclusive due to color Patient remains confused thinking that he is in high school. Denies any pain. Concern for Vimpat exacerbating liver disease. Encephalopathy due to liver disease and dehydration. (THIAGO DARNELL APRN) EKG EKG : Rate: >100 Rhythm: sinus QRS: normal Intervals: normal ST/T: normal Other: other (NO STEMI) Interpreted by: signing physician (SILVIANO EDEN DO) Consult/PCP Consult/PCP : Physician Contacted: Dr. Fay Time Called: 19:43 Type of discussion: Admit Discussion/PCP Comments I discussed patient's HPI, PMH, labs, VS, CT, exam findings and treatment in ED with Dr. Fay. Dr. Fay will admit in patient. (THIAGO DARNELL APRN) CT CT : CT: Head no contrast (No acute intracranial findings) Interpretation: Abnormal (Diffuse hepatic steatosis), Faxed Report (THIAGO DARNELL APRN) THIAGO DARNELL APRN Jul 22, 2016 16:38 SILVIANO EDEN DO Jul 24, 2016 06:33
--- NOTE | 2016-07-22 16:45 | NUR ---
[facility] VISIT [facility] AT BEDSIDE TO SEE PATIENT.
--- OUTSIDE RECORDS SUMMARY | 2016-07-22 16:47 | XMS REPORT | Continuity of Care Document ---
Author Author [facility] Organization [facility] Address Unknown Phone Unavailable Support Name Relationship Address Phone OLGA LIDIA BLANCHARD MD Caregiver [facility] [address] [place] [address] Unavailable ER, DOC Caregiver Unknown Unavailable RADHA TERESA DO Caregiver [address] [place] [phone] USMAN MILLER Next Of Kin [address] [place] [address] Insurance Providers Payer Name Policy Number Subscriber Name Relationship [facility] [id number] Iliana Miller 17 Self Advance Directives Directive Response Recorded Date/Time Advanced Directives Type None 11/30/13 10:45pm Ordered Resuscitation Status Full Code 11/28/13 3:20pm Chief Complaint and Reason for Visit Chief Complaint Nausea,Vomiting,Diarrhea Reason for Visit [id number] WITH VOMITING Dehydration Problems Medical Problems Problem [...] Date 11/29/13 2:55pm Disposition 02 TO OBS [facility] Condition at Discharge Stable Instructions/Education Provided DI [...] F (96.8 - 99.1) Temperature (Calculated Celsius) 36.04696 degrees C (36.0 - 37.3) Pulse Rate [...] Has specimen been collected/obtained? Y Urine Specific [place] November 28, 2013 12:35pm >=1.030 H - [...] 04, 2010 10:42pm LAB TEST FORM REQUEST [id number] - Turbidity November 30, 2013 11:05pm < 20 0-20 Glomerular Filtration Rate Calc November 30, 2013 11:05pm 97 - Immature Granulocyte # (Auto) November 30, 2013 11:05pm 0.06 T/MM3 H 0.00- 0.03 Immature Granulocyte % (Auto) November 30, 2013 11:05pm 0.6 % H 0.0-0.5 Icterus Index November 30, 2013 11:05pm < 2 0-7 UC-Ndq-S-Type Natriuretic Peptide June 02, 2011 4:35am 454 PG/ML H 0- 175 Rule in cut points: <50 years old=450; 50-75 years old=900; >75 years old=1800; When utilizing ProBNP rule-in cut points, adjustment for impaired renal function is typically not required. Group A Streptococcus Culture Throat June 02, 2013 12:19pm Urine Culture Urine, Clean Catch-Midstream June 02, 2013 12:04pm Gram Positive Hcacorta Procedures No known history of procedures. Encounters Encounter Location Date/Time Departed Emergency Room [facility] 11/30/13 10:19pm Discharged Inpatient [facility] 11/28/13 1:00pm Recent Diagnosis
--- OUTSIDE RECORDS SUMMARY | 2016-07-22 16:47 | XMS REPORT | Continuity of Care Document ---
Author Author [facility] Organization [facility] Address Unknown Phone Unavailable Support Name Relationship Address Phone RADHA TERESA DO Caregiver [address] [place] [phone] DENISE GAFFNEY MD Caregiver [address] [place] [phone] USMAN MILLER Next Of Kin [address] [place] [address] Insurance Providers Payer Name Policy Number Subscriber Name Relationship [facility] [id number] Iliana Miller 17 Self Advance Directives Directive [...] of your legs. 3.During office hours, call [phone] 4. After hours, please call [facility] at [phone], and have the dumper operator page your Surgeon IN THE EVENT OF [...] F (96.8 - 99.1) Temperature (Calculated Celsius) 36.64733 degrees C (36.0 - 37.3) Temperature Source [...] 04, 2010 10:42pm LAB TEST FORM REQUEST [id number] - Lipase November 29, 2013 12:15pm 561 [...] 29, 2013 4:40am 13.0 % H 0-9.0 LI-Fmv-W-Type Natriuretic Peptide June 02, 2011 4:35am 454 [...] Has specimen been collected/obtained? Y Urine Specific [place] November 28, 2013 12:35pm >=1.030 H - [...] procedures. Encounters Encounter Location Date/Time Discharged Inpatient [facility] 11/28/13 1:00pm Recent Diagnosis Nausea with Vomiting Dehydration
--- NOTE | 2016-07-22 17:00 | NUR ---
LAB LABORATORY AT BEDSIDE TO OBTAIN URINE SAMPLE AND DRAW BLOODWORK.
--- NOTE | 2016-07-22 17:06 | NUR ---
CT TRANSPORTED TO CT VIA STRETCHER PER BOND WRITER.
[2016-07-22 17:14] LABS: BASOPHILS # (AUTO) 0.1 T/MM3 (0-0.2); BASOPHILS % (AUTO) 0.9 % (0-2); EOSINOPHILS % (AUTO) 0.2 % (0-4); HCT - HEMATOCRIT 36.2 % (41-53); HGB - HEMOGLOBIN 13.2 GM/DL (13.5-17.5); IMMATURE GRANULOCYTE # (AUTO) 0.04 T/MM3 (0.00-0.03); IMMATURE GRANULOCYTE % (AUTO) 0.6 % (0.0-0.5); LYMPHOCYTES # (AUTO) 1.3 T/MM3 (1-4.8); LYMPHOCYTES % (AUTO) 18.9 % (23-45); MEAN CORPUSCULAR HGB 35.7 UUG (26-34); MEAN CORPUSCULAR HGB CONC(MCHC 36.5 GM/DL (31-37); MEAN CORPUSCULAR VOLUME 97.8 UM3 (80-100); MEAN PLATELET VOLUME 12.2 UM3 (9.4-12.4); MONOCYTES # (AUTO) 0.4 T/MM3 (0-0.8); MONOCYTES % (AUTO) 6.2 % (0-9.0); NEUTROPHILS #(AUTO)-ABSOLUTE 4.9 T/MM3 (1.8-7.7); NEUTROPHILS % (AUTO) 73.2 % (33-66); WBC - WHITE BLOOD COUNT 6.7 T/MM3 (4.5-11.0)
[2016-07-22 17:14] LABS: COLOR,URINE BROWN (YELLOW)
--- NOTE | 2016-07-22 17:15 | NUR ---
RETURN RETURNED FROM CT.
[2016-07-22] MEDS ORDERED: ONDANSETRON 4mg/2ml INJECTION IV ONE ×2 (17:30→18:45)
[2016-07-22 17:32] LABS: AMPHETAMINE SCREEN,URINE NEGATIVE; BARBITURATE SCREEN,URINE NEGATIVE; BENZODIAZEPINES SCREEN,URINE NEGATIVE; CANNABINOID SCREEN,URINE NEGATIVE; COCAINE SCREEN,URINE NEGATIVE; METHADONE SCREEN, URINE NEGATIVE; METHAMPHETAMINE SCREEN, URINE NEGATIVE; OPIATE SCREEN,URINE NEGATIVE; PHENCYCLIDINE SCREEN,URINE NEGATIVE; TRICYCLIC ANTIDEPRESSANT,URINE NEGATIVE
[2016-07-22 17:35] LABS: LEUKOCYTE ESTERASE ,URINE INCONCL DUE TO COLOR (NEGATIVE); NITRITE,URINE INCONCL DUE TO COLOR (NEGATIVE)
[2016-07-22 17:36] LABS: BLOOD, URINE INCONCL DUE TO COLOR (NEGATIVE); RBC,URINE 0-1 /HPF (0-3); UROBILINOGEN,URINE INCONCL DUE TO COLOR EU/DL (NORMAL)
[2016-07-22 17:37] LABS: BACTERIA,URINE 2+ (NEGATIVE); SQUAMOUS EPITHELIAL CELL,UR 0-5
[2016-07-22 17:38] LABS: MUCUS,URINE PRESENT
[2016-07-22 17:39] LABS: ACETAMINOPHEN < 10 UG/ML (10-30); ALBUMIN 3.5 G/DL (3.5-5.0); ALBUMIN/GLOBULIN RATIO 1.2 RATIO (1.1-2.2); ALKALINE PHOSPHATASE 133 U/L (38-126); ALT (SGPT) 198 U/L (21-72); ANION GAP 23 MEQ/L (5-15); BUN/CREATININE RATIO 13 RATIO (6-26); CALCIUM 8.7 MG/DL (8.4-10.2); CHLORIDE 86 MEQ/L (98-107); CO2 - CARBON DIOXIDE 21 MEQ/L (22-30); CREATININE 1.2 MG/DL (0.8-1.5); ETHANOL <10 MG/DL (<10); GLOMERULAR FILTRATION RATE 69; GLUCOSE 295 MG/DL (75-110); SALICYLATE < 1.0 MG/DL (2-20); SODIUM 130 MEQ/L (134-144); TOTAL PROTEIN 6.4 G/DL (6.3-8.2)
[2016-07-22 17:44] LABS: AST (SGOT) 378 U/L (17-59); POTASSIUM 2.8 MEQ/L (3.6-5)
[2016-07-22 17:54] LABS: LIPASE 1726 U/L (23-300)
[2016-07-22] MEDS ORDERED: POTASSIUM CHLORIDE 20 MEQ in NORMAL SALINE 1,000 ML IV ONE (18:30)
--- NOTE | 2016-07-22 18:43 | NUR ---
CT TRANSPORTED TO CT VIA STRETCHER PER PHYSICIAN INTERNIST.
[2016-07-22] MEDS ORDERED: NS KCL 20 MEQ 1,000 ML IV SCH (18:45)
--- NOTE | 2016-07-22 18:53 | NUR ---
RETURN RETURNED FROM CT.
--- NOTE | 2016-07-22 18:55 | NUR ---
Yobani santiago in [facility] - 07/22/16 at [address] TRANSPORTED TO CT VIA STRETCHER PER ADMINISTRATIVE OFFICE ASSISTANT.
[2016-07-22 19:45] LABS: INR 1.17 (0.76-1.04); PROTHROMBIN TIME 12.7 SEC (9.31-12.49); PTT 34.3 SEC (24-36)
[2016-07-22] MEDS ORDERED: MULTI-VIT INF, ADULT 10 ML, THIAMINE 100 MG, FOLIC ACID 1 MG in NORMAL SALINE 1,000 ML IV ONE ×4 (20:00)
--- NOTE | 2016-07-22 20:00 | NUR ---
ADMISSION PATIENT BEING ADMITTED TO ROOM 156. REPORT GIVEN TO LUKE RAMIREZ, MEDICAL UNIT.
--- OUTSIDE RECORDS SUMMARY | 2016-07-22 20:12 | XMS REPORT | Continuity of Care Document ---
Author Author [facility] Organization [facility] Address Unknown Phone Unavailable Support Name Relationship Address Phone OLGA LIDIA BLANCHARD MD Caregiver [facility] [address] [place] [address] Unavailable ER, DOC Caregiver Unknown Unavailable RADHA TERESA DO Caregiver [address] [place] [phone] USMAN MLILER Next Of Kin [address] [place] [address] Insurance Providers Payer Name Policy Number Subscriber Name Relationship [facility] [id number] Iliana Miller 17 Self Advance Directives Directive Response Recorded Date/Time Advanced Directives Type None 11/30/13 10:45pm Ordered Resuscitation Status Full Code 11/28/13 3:20pm Chief Complaint and Reason for Visit Chief Complaint Nausea,Vomiting,Diarrhea Reason for Visit ARW-ONOS-OSDPTS WITH VOMITING Dehydration Problems Medical Problems Problem [...] Date 11/29/13 2:55pm Disposition 02 TO OBS [facility] Condition at Discharge Stable Instructions/Education Provided DI [...] F (96.8 - 99.1) Temperature (Calculated Celsius) 36.22085 degrees C (36.0 - 37.3) Pulse Rate [...] Has specimen been collected/obtained? Y Urine Specific Ul[place] November 28, 2013 12:35pm >=1.030 H - [...] 04, 2010 10:42pm LAB TEST FORM REQUEST [id number] - Turbidity November 30, 2013 11:05pm < 20 0-20 Glomerular Filtration Rate Calc November 30, 2013 11:05pm 97 - Immature Granulocyte # (Auto) November 30, 2013 11:05pm 0.06 T/MM3 H 0.00- 0.03 Immature Granulocyte % (Auto) November 30, 2013 11:05pm 0.6 % H 0.0-0.5 Icterus Index November 30, 2013 11:05pm < 2 0-7 SL-Ayh-W-Type Natriuretic Peptide June 02, 2011 4:35am 454 [...] Encounters Encounter Location Date/Time Departed Emergency Room [facility] 11/30/13 10:19pm Discharged Inpatient [facility] 11/28/13 1:00pm Recent Diagnosis
--- OUTSIDE RECORDS SUMMARY | 2016-07-22 20:12 | XMS REPORT | Continuity of Care Document ---
Author Author [facility] Organization [facility] Address Unknown Phone Unavailable Support Name Relationship Address Phone RADHA TERESA DO Caregiver [address] [place] [phone] DENISE GAFFNEY MD Caregiver [address] [place] [phone] USMAN MILLER Next Of Kin [address] [place] [address] Insurance Providers Payer Name Policy Number Subscriber Name Relationship [facility] [id number] Iliana Miller 17 Self Advance Directives Directive [...] of your legs. 3.During office hours, call [phone] 4. After hours, please call [facility] at [phone], and have the stereoplotter operator page your Surgeon IN THE EVENT [...] F (96.8 - 99.1) Temperature (Calculated Celsius) 36.85142 degrees C (36.0 - 37.3) Temperature Source [...] 04, 2010 10:42pm LAB TEST FORM REQUEST [id number] - Lipase November 29, 2013 12:15pm 561 [...] 29, 2013 4:40am 13.0 % H 0-9.0 ZP-Wah-Y-Type Natriuretic Peptide June 02, 2011 4:35am 454 [...] Has specimen been collected/obtained? Y Urine Specific Edgar November 28, 2013 12:35pm >=1.030 H - [...] procedures. Encounters Encounter Location Date/Time Discharged Inpatient [facility] 11/28/13 1:00pm Recent Diagnosis Nausea with Vomiting Dehydration
[2016-07-22] MEDS ORDERED: DEXTROSE 50% SYRINGE 50ml (Eq. 1 AMP) IV PRN (20:15)
[2016-07-22] MEDS ORDERED: ONDANSETRON 4mg/2ml INJECTION IV PRN (20:15)
[2016-07-22] MEDS ORDERED: INSULIN REGULAR 100 UNIT/ML SQ PRN (20:15)
[2016-07-22] MEDS ORDERED: GLUCOSE ORAL GEL 40% 37.5 G TUBE PO PRN (20:15)
[2016-07-22] MEDS ORDERED: HYDROMORPHONE 2mg/ml INJECTION IV PRN (20:15)
--- NOTE | 2016-07-22 20:21 | NUR ---
AWAITING AWAITING BANANA BAG FROM PHARMACY FOR PATIENT TO BE ADMITTED.
--- NOTE | 2016-07-22 20:36 | NUR ---
admit status able to transfer self from cart to bed. IV fluids infusing to 2 peripheral sites. Pt. cooperative, confused as to date and time. Family accompanies and provide most admission information. Denies nausea at present, takes sips of [place] and water. Denies pain or dyspnea. Bruising to inner R forearm and to R torso. Pt. states bruising from recent fall. Conversation w/ pt. is wandering, pt. confused to place, date and time
[2016-07-22 20:45] VITALS: BP 141/69; PULSE 105; RESP 20; TEMP 97.8; O2SAT 99
[2016-07-22] MEDS ORDERED: LACOSAMIDE 100 MG TABLET PO SCH (21:00)
[2016-07-22] MEDS ORDERED: LACTULOSE 20 GM/30 ML UD PO ONE (21:00)
--- NOTE | 2016-07-22 22:12 | HPPDOC ---
TREY BLAKELY MD 07/22/16 2153: HPI - Adult Date DATE: 07/22/16 TIME: 22:49 General Chief Complaint: confused History of Present Illness This is a 35-year-old male but lives at home with his fiance. The patient has a history of chronic seizure disorder. The patient has been going through transition of changing his antiseizure medication. The patient had been on Keppra, then changed to Vimpat, and most recently because of tremors was changed to Trileptal. The patient has not started his Trileptal yet. The patient has been off his seizure medicines for at least 4-5 days. The patient s fiance contacted him at 11:00 this morning and found him to be confused. This is a somewhat acute change for the patient. The patient was transported to the emergency department were in the ER the patients CT head was unremarkable. The patients labs demonstrated a worsening of his liver disease. Patient has alcoholic liver disease. Patient has a remote history of pancreatitis. At this time the patient to be admitted for further assessment of his encephalopathy. There is no source of infection identified in the workup so far. The fiance reports that the patient had a viral illness the first of may and has not improved over the last 6 weeks. The patient continues with a cough that precipitates emesis. The patient has ongoing weakness. The patient has been unable to work. Past Medical History Past Medical History seizure Surgical History Patient's Surgical History: dental extraction Current Medications Home Meds Reported Medications Lacosamide (Vimpat) 100 Mg Tablet, 100 MG PO BID 07/12/16 Omeprazole (Omeprazole) 40 Mg Capsule.dr, 40 MG PO ACB 07/12/16 Allergies: Coded Allergies: No Known Allergies (Unverified , 07/23/16) Family History Family History: mother and father with HTN, Social History Smoking Status: Current every day smoker Does patient use chewing tobac: No # of Packs/Tins per Day: 0.5 Substance Use Type: does not use Alcohol Intake: occasionally, other (last drank 3 days ago per his report, the family states that he has not drank for the past 2 or 3 months now) Last Drink: days (ago) Marital Status: Single, In a relationship Sexuality: female partner Housing: house Household Members: significant other Service: No Current Occupational Status: employed Social History Comments The patient has not worked for 2 months Review of Systems Unable to Obtain Comments The patient denies a headache, denies fevers chills or sweats, the review of systems is very limited as patient is confused. All information is primary provided by trent and reports from ER. The patient has had a cough persistent over the past several weeks. The cough at times can precipitate emesis. No blood in emesis. The patients increasing weakness. Unable to perform ADLs to a certain degree. The patient is currently going to modifications of his seizure medicines as noted above. The patient has been out of his seizure medicines for the past 4 days as he is reluctant to start Trileptal. Mom then pat the patient had report tremors which has made him less likely to take this medication. Local neurologist is assisting in the modification of his medications. The last seizure the patient had wouldve been March of last year. The patient did have tremors last week. The patient has decreased by mouth intake over the past several weeks. It is not clear when the last alcohol ingestion occurred. The patient reports 3 days ago. The family feels been at least 2 months. The patient had no change in bowel movements. Has had no skin rashes. No focal neurological weaknesses. A 10 point review of systems is otherwise negative except for described above Physical Exam General General Nourishment: thin, apparent age, adult General Body Habitus: disheveled Vital Signs Vital Signs Date Time Temp Pulse Resp B/P Pulse Ox O2 Delivery O2 Flow Rate FiO2 07/22/16 20:31 106 16 108/70 100 Room Air 07/22/16 19:45 98.3 Height (Feet): 5 Height (Inches): 8.00 Telemetry Rhythm: Sinus Rhythm Eyes Brief: FOUND: EOMI, PERRL, scleral icterus Neck Brief: FOUND: midline, NOT FOUND: JVD, nuchal rigidity, spasm, tenderness , tracheal deviation Respiratory Brief: FOUND: clear all sweeney, equal bilaterally, NOT FOUND: rales , symmetrical, wheezes Cardiovascular (brief) Cardiac Brief: FOUND: regular rate, regular rhythm, NOT FOUND: click, gallop, murmur, pedal edema, peripheral edema, rub Abdomen (brief) Abdominal Brief: FOUND: BS normo active x4, soft, NOT FOUND: distended, tender Musculoskeletal (brief) Musculoskeletal Brief: NOT FOUND: deformity, extremities move equally, loss of motion, spasm, tenderness Integumentary (brief) Integumentary Brief: FOUND: dry, pink, warm Neurologic (brief) Neurological Brief: FOUND: cranial 2-12 intact Comments no focal deficit Neurologic RN Documented GCS Eye Opening: (4)Spontaneous, (4)Spontaneous Verbal: (4)Confused, (4)Confused Motor: (6)Obeys Commands, (6)Obeys Commands Total: Psychiatric (brief) FOUND: alert, NOT FOUND: attentive, normal affect, oriented, other Comments this patient is confused. not oriented at all. will try to answer questions but is confabulating to a degree. Laboratory Laboratory Tests Test 07/22/16 17:00 07/22/16 17:04 07/22/16 17:05 07/22/16 17:43 Prothromb Time International Ratio 1.17 Activated Partial Thromboplast Time 34.3SEC White Blood Count 6.7T/MM3 Red Blood Count 3.70M/MM3 Hemoglobin 13.2GM/DL Hematocrit 36.2% Mean Corpuscular Volume 97.8UM3 Mean Corpuscular Hemoglobin 35.7UUG Mean Corpuscular Hemoglobin Concent 36.5GM/DL RDW Standard Deviation 51.7FL Platelet Count 48T/MM3 Mean Platelet Volume 12.2UM3 Immature Granulocyte % (Auto) 0.6% Neutrophils (%) (Auto) 73.2% Lymphocytes (%) (Auto) 18.9% Monocytes (%) (Auto) 6.2% Eosinophils (%) (Auto) 0.2% Basophils (%) (Auto) 0.9% Absolute Immature Granulocyte (auto 0.04T/MM3 Absolute Neutrophils (auto) 4.9T/MM3 Absolute Lymphocytes (auto) 1.3T/MM3 Absolute Monocytes (auto) 0.4T/MM3 Absolute Eosinophils (auto) 0.0T/MM3 Absolute Basophils (auto) 0.1T/MM3 Ammonia 30UMOL/L Urine Collection Type Voided-not cc-midstr Urine Color Brown Urine Turbidity Sl cloudy Urine pH 6.5 Urine Specific [place] 1.020 Urine Protein Inconcl due to color Urine Glucose (UA) Inconcl due to color Urine Ketones Inconcl due to color Urine Blood Inconcl due to color Urine Nitrite Inconcl due to color Urine Bilirubin Inconcl due to color Urine Urobilinogen Inconcl due to colorEU/DL Urine Leukocyte Esterase Inconcl due to color Urine RBC 0-1/HPF Urine WBC 1-3/HPF Urine Squamous Epithelial Cells 0-5 Urine Bacteria 2+ Urine Hyaline Casts 3-5/LPF Urine Mucus Present Urine Culture Indicated Cult not indicated Turbidity < 20 Sodium Level 130MEQ/L Potassium Level 2.8MEQ/L Chloride Level 86MEQ/L Carbon Dioxide Level 21MEQ/L Anion Gap 23MEQ/L Blood Urea Nitrogen 15.0MG/DL Creatinine 1.2MG/DL Glomerular Filtration Rate Calc 69 BUN/Creatinine Ratio 13RATIO Glucose Level 295MG/DL Calculated Osmolality 263MOSM/KG Calcium Level 8.7MG/DL Magnesium Level 1.4MG/DL Total Bilirubin 8.10MG/DL Icterus Index 3 Aspartate Amino Transf (AST/SGOT) 378U/L Alanine Aminotransferase (ALT/SGPT) 198U/L Alkaline Phosphatase 133U/L Total Creatine Kinase 114U/L Total Protein 6.4G/DL Albumin 3.5G/DL Globulin 2.9G/DL Albumin/Globulin Ratio 1.2RATIO Lipase 1726U/L Chemistry Specimen Hemolysis < 15 Salicylates Level < 1.0MG/DL Urine Opiates Screen NegativeNG/ML Urine Oxycodone Screen NegativeNG/ML Urine Methadone Screen NegativeNG/ML Urine Propoxyphene Screen NegativeNG/ML Acetaminophen Level < 10UG/ML Urine Barbiturates Screen NegativeNG/ML Urine Tricyclic Antidepressants NegativeNG/ML Urine Phencyclidine Screen NegativeNG/ML Urine Amphetamines Screen NegativeNG/ML Urine Methamphetamines Screen NegativeNG/ML Urine Benzodiazepines Screen NegativeNG/ML Urine Cocaine Screen NegativeNG/ML Urine Cannabinoids Screen NegativeNG/ML Alcohol, Quantitative <10MG/DL Lab Scanned Report REFERENCE [id number] Test 07/22/16 21:18 Glucometer 108mg/dL Radiology CT head negative cT abdometn is reported to demonstrate on hepatic steatotosis Assessment & Plan Assessment 1. Encephalopathy acute present on admission: Differential diagnosis is postictal, hepatic, stroke, occult tumor, each of these will be discussed below. 2. Hepatic encephalopathy acute present on admission: Patient has worsening liver function. The patients child P[place] B with a 60% 2 yr survival and a 80% 1 yr survival. The patients MELD score is 8 with a 3 month mortality of 6%. The patients Maddrgi Discrimation function score is not able to measured yet as PT not measured. For now patient will be treated with fluids. The patient will be started on lactulose. Serum ammonia level is not specifically elevated. But this poorly correlates with actual disease process. It is possible that the patient would lactulose will improve mentally. If not it would not be unreasonable to proceed with MRI to exclude an occult SAFETY PATROL OFFICER process. Which would include potentially stroke or tumor. 3. Encephalopathy related to postictal state acute present on admission: Is possible that the patient is postictal. The patient has been off antiseizure medications now for approximate 4-5 days. Please see below discussion. Perhaps as the time. Moves on patients vital signs were clear as he recovers from a potential unwitnessed seizure. 4. Seizure disorder chronic present on admission: Patient has been on various antiseizure medications recently. Initially had been on Keppra as unchanged and intact and most recently had a prescription for Trileptal written. The patient did not stop his Trileptal. Instead stopped his Vimpat. The patient is followed by a local neurologist. Seizure precautions, telemetry, make further considerations in the morning. 5. Hypokalemia acute present admission: Patients had significant GI illness for the past 6 weeks per fiancs report. Therefore well proceed in this by GI loss. Well replace and recheck 6. Thrombocytopenia acute present admission: Most likely related to alcoholic liver disease. Place her drops definitely from baseline. Initially had been as high as 140 and are now down to 48 7. Macrocytic anemia chronic present on admission: Related to chronic alcohol ingestion. Well monitor 8. Hepatitis acute present on admission: Patients transaminases are increasing, patients lipase is increasing, patients total bili is increasing, CT of the abdomen and pelvis only demonstrated hepatic steatosis. Well ultrasound the gallbladder in the morning to exclude occult gallbladder disease. Ill see considerations for an MRI of the abdomen are not unreasonable this setting to exclude an occult obstructive process. For now the patient will be nothing by mouth due to elevated lipase. Acute infectious hepatitis panel has been ordered. 9. Chronic alcohol abuse present on admission: Ativan utilize when necessary evidence of cultural. Appropriate vitamin supplementation. 10. Chronic tobacco use present on admission: Counseled to stop 11. DVT prophylaxis: SCD 12. Gastric prophylaxis: PPI What is concerning is that this patient has a relatively sudden onset of change in mental status. The fianc reports the patient was normal is morning. The patient is now not normal. The patients exam is more consistent with hepatic encephalopathy. But typically uses more gradual change in notice sudden change. Therefore considerations for stroke and/or postictal state are not unreasonable. If these considerations do not inman out, the most likely consideration would be hepatic encephalopathy. DVT Prophylaxis: SCD'S Code Status Full Code, unverified Hospital Course Summary Disclaimer The hospital course summary below is not to be considered part of the above Progress Note. SMITHA SO MD 07/23/16 1427: Past Medical History Current Medications Home Meds Reported Medications Lacosamide (Vimpat) 100 Mg Tablet, 100 MG PO BID 07/12/16 Omeprazole (Omeprazole) 40 Mg Capsule.dr, 40 MG PO ACB 07/12/16 Allergies: Coded Allergies: No Known Allergies (Unverified , 07/23/16) Assessment & Plan Assessment 07/23/2016-Dr. So I have seen and examined the patient. I've reviewed the H&P, lab and radiology. Past medical history, family history, review of systems, and social history were reviewed and I'm in agreement with the additions below. The patient does have a long-standing history of alcoholism. He's had pancreatitis in the past. History is obtained from his significant other, father , and brother. The patient is confused and confabulating. He is not able to give an accurate history. I did call and talk with Dr. Sylvain mccallum, the patient's primary care physician and with Dr. Plummer, the patient's neurologist. Per family, the patient had an acute decline in mental status yesterday where he was very confused. He has not been like this before. They do state he has had problems with gait instability, dizziness and visual problems off-and-on for the past month to month and a half. He had a syncopal event versus seizure 3 weeks ago. He also developed increased shakiness [address] Plummer has been adjusting his seizure medications. He had been on Keppra in the past but this caused nausea. He was then switched to Vimpat which cause shakiness. He was supposed to start Trileptal but did not take it. He has had an occasional cough and occasional emesis. He has not had history of GI bleed. Family states that he quit drinking around [place] time. They state he is not able to drive and has been too weak to walk and they don't think anyone has been delivering alcohol to him. On exam the patient is alert but confused. He is obviously confabulating. He appears somewhat disheveled and has brownish-black material under his fingernails. HEENT reveals sclerae to be icteric, pupils are equal, patient has nystagmus and difficulty with gaze. He does admit to double vision. Oropharynx is moist. Neck is supple. Chest is clear to auscultation. Cardiac vascular reveals a borderline tachycardic rate with irregular rhythm. Abdomen is soft and nontender and nondistended, abdomen is obese, bowel sounds are hypoactive. Extremities are free of edema. Skin is warm and dry and mildly icteric. Neurologic reveals nystatin a, confusion, very minimal tremor, no asterixis. No other focal deficits. Gallbladder sonogram shows sludge in the gallbladder without stone disease or other evidence of acute cholecystitis. There is significant hepatic steatosis. There is no gallbladder wall thickening, no pericholecystic fluid, and no sonographic Felton's sign nor cholelithiasis. No mention of ascites. Pancreas could not be visualized due to shadowing bowel gas. CT abdomen and pelvis showed severe hepatic steatosis. No free fluid seen. Significant density throughout the gallbladder could be due to sludge or possibly vicarious excretion of contrast if there has been a recent contrast administration. Pancreas appears normal. Per Dr. Plummer, CT head shows atrophy and cerebellar degeneration. He thinks this is secondary to the patient's alcoholism. Impression Encephalopathy-possible hepatic encephalopathy with known worsening liver disease, also at increased risk for Wernicke's encephalopathy. 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 Will also continue lactulose. Monitor for signs of alcohol withdrawal , however family is quite certain that the patient has not been drinking in the past month or 2. History of seizure disorder-Dr. Plummer recommends restarting Keppra for now then switching to Briviact on Tuesday when it is available by our pharmacy. He will be on 50 mg by mouth twice a day. Continue seizure precautions. Hypokalemia is improving. Continue to monitor Hypomagnesemia-replace IV Thrombocytopenia-this is acute and was not present last week. Hepatic steatosis Liver disease with acute versus chronic hepatitis-bilirubin has been intermittently elevated in the past. Liver enzymes were essentially normal in October and were mildly elevated in March 2016. Viral hepatitis panel is pending. Elevated lipase without abdominal pain-history of pancreatitis-check lipase tomorrow Anemia Dehydration-improved Metabolic acidosis-resolved TREY BLAKELY MD Jul 22, 2016 21:53 SMITHA SO MD Jul 23, 2016 14:27
[2016-07-22] MEDS: NS KCL 20 MEQ 1,000 ML IV SCH (22:16)
[2016-07-22] MEDS: OXCARBAZEPINE 300 MG TABLET PO SCH (23:00)
--- NOTE | 2016-07-22 23:00 | NUR ---
intake takes med without emesis
[2016-07-22 23:55] VITALS: Ht 172.7 cm; Wt 74.9 kg
[2016-07-23] VITALS (9 sets, daily range): BP systolic 94–115; BP diastolic 64–71; PULSE 86–108; RESP 15–20; TEMP 98–98.4; O2SAT 97–100
--- NOTE | 2016-07-23 05:00 | NUR ---
activity assisted to BR, states "a little" dizzy. Liquid as well as mod. amt. soft stool
[2016-07-23 05:41] LABS: BASOPHILS # (AUTO) 0.1 T/MM3 (0-0.2); BASOPHILS % (AUTO) 0.8 % (0-2); EOSINOPHILS # (AUTO) 0.1 T/MM3 (0-0.5); EOSINOPHILS % (AUTO) 1.1 % (0-4); HGB - HEMOGLOBIN 11.6 GM/DL (13.5-17.5); IMMATURE GRANULOCYTE # (AUTO) 0.05 T/MM3 (0.00-0.03); IMMATURE GRANULOCYTE % (AUTO) 0.7 % (0.0-0.5); LYMPHOCYTES # (AUTO) 1.8 T/MM3 (1-4.8); LYMPHOCYTES % (AUTO) 24.2 % (23-45); MEAN CORPUSCULAR HGB 35.5 UUG (26-34); MEAN CORPUSCULAR HGB CONC(MCHC 36.3 GM/DL (31-37); MEAN CORPUSCULAR VOLUME 97.9 UM3 (80-100); MEAN PLATELET VOLUME 12.4 UM3 (9.4-12.4); MONOCYTES # (AUTO) 0.6 T/MM3 (0-0.8); MONOCYTES % (AUTO) 7.8 % (0-9.0); NEUTROPHILS #(AUTO)-ABSOLUTE 4.8 T/MM3 (1.8-7.7); NEUTROPHILS % (AUTO) 65.4 % (33-66); RED BLOOD COUNT 3.27 M/MM3 (4.50-5.90); WBC - WHITE BLOOD COUNT 7.3 T/MM3 (4.5-11.0)
[2016-07-23 05:58] LABS: ALBUMIN/GLOBULIN RATIO 1.1 RATIO (1.1-2.2); ALKALINE PHOSPHATASE 114 U/L (38-126); ALT (SGPT) 183 U/L (21-72); ANION GAP 11 MEQ/L (5-15); AST (SGOT) 427 U/L (17-59); BUN/CREATININE RATIO 16 RATIO (6-26); CALCIUM 7.9 MG/DL (8.4-10.2); CHLORIDE 99 MEQ/L (98-107); CO2 - CARBON DIOXIDE 24 MEQ/L (22-30); GLOMERULAR FILTRATION RATE 85; GLUCOSE 105 MG/DL (75-110); MAGNESIUM 1.5 MG/DL (1.6-2.3); POTASSIUM 3.4 MEQ/L (3.6-5); SODIUM 134 MEQ/L (134-144); TOTAL PROTEIN 5.8 G/DL (6.3-8.2)
--- NOTE | 2016-07-23 07:00 | NUR ---
rest sleeps off and on, resp. unlabored
--- NOTE | 2016-07-23 08:02 | DI ---
Indication: ITS.REASON: elevated lipase and liver enzymes, jaundice PROCEDURE: CT ABD/PELVIS W/O CONTRAST: Encounter: Initial Comparison: None Technique: Axial CT images were performed through the abdomen and pelvis without intravenous contrast. Coronal and sagittal two-dimensional reformats. Automated Exposure Control and Iterative Reconstruction dose reducing techniques were utilized. Findings: The lung bases are clear. Liver is severely fatty infiltrated without obvious mass. Vicarious excretion of contrast or abnormal density in the gallbladder. Small hiatal hernia. The spleen, pancreas and adrenal glands are within normal limits. The kidneys appear normal. No abdominal or pelvic adenopathy. Bladder is normal. Prostate and rectum are normal. No free fluid or evidence of bowel obstruction. The appendix is normal. Bone windows show no aggressive lytic or blastic osseous lesions. Impression: Severe hepatic steatosis. Significant density throughout the gallbladder could be due to sludge or possibly vicarious excretion of contrast if there has been a recent contrast administration. There is a preliminary report by [employer]. .
--- NOTE | 2016-07-23 08:08 | DI ---
Indication: ITS.REASON: fell with bruises to body, confused PROCEDURE: CT HEAD W/O CONTRAST: Encounter: Initial Comparison: November 30, 2013 Technique: Axial CT images through the head were performed without contrast. Iterative Reconstruction dose reducing technique was utilized. FINDINGS: The ventricles are of normal size, shape, and configuration for the patient's age. There is no evidence of acute intracranial hemorrhage, midline displacement, or mass effect. The CT attenuation of the brain parenchyma is normal within the cerebellum, brain stem, and cerebral hemispheres. The tympanic cavities and mastoid air cells are free of appreciable disease. There are no definite fractures of the skull base, calvarium, or visualized portion of the midface. IMPRESSION: No CT evidence of acute traumatic intracranial injury. There is a preliminary report by [employer]. .
[2016-07-23] MEDS ORDERED: THIAMINE 100 MG TABLET PO SCH (09:00)
[2016-07-23] MEDS ORDERED: PANTOPRAZOLE 40mg INJECTION IV ONE (09:00)
--- NOTE | 2016-07-23 09:23 | DI ---
Indication: ITS.REASON: elevated liver enzymes and lipase PROCEDURE: US GALLBLADDER: Encounter: Initial Comparison: CT abdomen/pelvis from yesterday Technique: Grayscale and color Doppler sonographic imaging of the right upper quadrant of the abdomen was performed. Findings: Hepatic parenchyma is echogenic and sonographically dense without evidence for focal mass. The gallbladder shows a large amount of echogenic sludge probably representing the high attenuation material seen by CT. There is no wall thickening, pericholecystic fluid, sonographic Felton's sign or cholelithiasis. Both the intra and extrahepatic biliary system are of normal caliber with the common duct measuring 4 mm in dimension. Pancreas could not be visualized due to shadowing bowel gas. The right kidney is present without collecting system dilatation. The right kidney measures 11.4 cm in length. Impression: Gallbladder sludge without stone disease or other evidence of acute cholecystitis. Significant hepatic steatosis. .
[2016-07-23] MEDS: MAGNESIUM SULFATE 1 G in D5W 100 ML IV SCH ×2 (10:08→11:25)
[2016-07-23] MEDS: THIAMINE 200mg/2ml INJECTION IV SCH (10:09)
[2016-07-23] MEDS: FOLIC ACID 5 MG/ML INJECTION IV SCH (10:09)
[2016-07-23] MEDS: OXCARBAZEPINE 300 MG TABLET PO SCH (10:10)
[2016-07-23] MEDS: LACTULOSE 20 GM/30 ML UD PO SCH ×3 (10:10→20:27)
[2016-07-23] MEDS: ARTIFICIAL TEARS 15 ML BOTTLE BOTH EYES PRN ×3 (10:12→20:27)
[2016-07-23] MEDS: NS KCL 20 MEQ 1,000 ML IV SCH ×2 (11:25→23:12)
[2016-07-23] MEDS: LEVETIRACETAM 500 MG TABLET PO SCH ×2 (13:40→20:27)
[2016-07-23 14:36] LABS: HEPATITIS A ANTIBODY IGM-BATCH NEGATIVE (NEGATIVE); HEPATITIS C VIRUS AB-BATCH NEGATIVE (NEGATIVE)
[2016-07-23] MEDS ORDERED: METOCLOPRAMIDE 10mg/2ml INJECTION IV PRN (15:30)
--- NOTE | 2016-07-23 15:34 | NUR ---
EMESIS PT REPORTS FEELING NAUSEATED AND HAVING SOME EMESIS, LIQUID, UNMEASURED. PRN REGLAN GIVEN.
--- NOTE | 2016-07-23 18:42 | NUR ---
STATUS PT IS A&O TO SELF. PT CONFUSED THROUGHOUT THE SHIFT. PT IS ON RA. DENIES PAIN, SOA, CP. PRN GIVEN FOR NAUSEA. PT HAS RESTED WELL SINCE GIVEN. PRN EYE DROPS GIVEN TODAY FOR DRY EYES. NO SS INSULIN NEEDED TODAY.NOTIFIED DR. ROMERO PT'S FAMILY WAS VERY UPSET PATIENT WAS STARTED BACK ON KEPPRA. DR. ROMERO WENT IN TO TALK TO FAMILY. BED ALARM ON.
--- NOTE | 2016-07-23 19:12 | CONSF ---
DATE OF CONSULTATION 07/23/[address] So. CHIEF COMPLAINT Seizure disorder, confusion and ophthalmoplegia. HISTORY OF PRESENT ILLNESS Patient is a 35-year-old male with history of complex partial seizure and alcohol abuse. He has been treated for severe recurrent dizziness and ataxia for the past few weeks. This was initially blamed on medication he was taking for seizure including Keppra and Vimpat. The patient was later switched to Trileptal and he did not take it because of fear of side effect. The patient had no seizure recently but he has been having progressing confusion, ophthalmoplegia, difficulty moving his eyes associated with nystagmus and confabulation. The patient's blood pressure on admission was in the lower range of normal. He has had a very fast heart rate. His lab work on admission showed elevated bilirubin and elevated liver enzymes. He has been very jaundiced. There has been some concern for ascites with extended belly. His toxicology testing showed a level of alcohol less than 10. He had no other positive drug levels. He had some lab tests for hepatitis and this is still pending. His urine showed 2+ bacteria and a slightly elevated white count which should be monitored later for infection. He had a CT of the head that showed no acute abnormalities but it did show significant atrophy in the brain, especially in the cerebellum, which can be associated with the history of alcohol abuse including the use of vodka for many years. The patient said that he did not drink for over a month which cannot be checked. On physical examination the patient was awake, alert, oriented to self and people. The patient has been making stories about seeing doctors and doing things he has never done before. His eyes were fixated in primary gaze. He was having difficulty moving his eye either direction. He is having some vertical and bouncing nystagmus of the eyes. He is also having double vision. His speech was fluent. Motor examination was 5/5 in all extremities. Sensory examination was symmetrical to light touch, pinprick and vibration sensation. Deep tendon reflexes were 2+/4. Plantar reflexes were in flexion bilaterally. Coordination for [id number] was very dysmetric bilaterally. ASSESSMENT 1. Wernicke's encephalopathy associated with low thiamine and alcohol abuse. This usually manifests as ataxia, ophthalmoplegia and confusion. 2. History of complex partial seizure. The patient is supposed to be on Trileptal. This can affect his liver enzymes and it is better for him to be on a medication that has no effect on the liver including Keppra and Briviact. 3. There is no evidence of intracranial bleed or other lesion on the CT but MRI of the brain would be a better test to rule out other focal malfunctioning or lesions. PLAN 1. Continue thiamine IV to treat for Wernicke's encephalopathy. 2. Provide folic acid 1-2 mg a day. 3. Start patient on Keppra 500 mg p.o. b.i.d. This can be changed to Briviact when it becomes available at the pharmacy. The dosage is 50 mg p.o. b.i.d. 4. Consider obtaining an MRI of the brain with and without contrast if the patient's symptoms of double vision and ataxia are not improving over the weekend. 5. Consider psychiatric consultation for depression and alcohol abuse. 6. Watch for any symptoms of alcohol withdrawal including agitation and abnormal vital signs. May use Ativan if patient having seizure or agitation problem. MTDD
[2016-07-24] VITALS (7 sets, daily range): BP systolic 102–119; BP diastolic 65–77; PULSE 79–103; RESP 16–20; TEMP 97.7–98.7; O2SAT 97–99
--- NOTE | 2016-07-24 05:23 | NUR ---
STATUS. PT SITTING ON THE SIDE OF THE BED. EDUCATED ABOUT THE USE OF CALL LIGHT AND SAFETY. DENIED ANY PAIN ALERT WITH CONFUSION. BED ALARM ON. PT CONTINUES ON IV FLUIDS THAT HE TOLERATES WELL. HAS BEEN UP TO THE BATHROOM WITH ONE PERSON ASSIST. GAIT UNSTEADY. AMBULATED ALONG THE HALLWAY WITH THE FAMILY AT THE BEGINNING OF THE SHIFT. WILL CONTINUE TO MONITOR.
[2016-07-24 06:24] LABS: ALBUMIN 2.4 G/DL (3.5-5.0); ALKALINE PHOSPHATASE 107 U/L (38-126); ALT (SGPT) 179 U/L (21-72); ANION GAP 5 MEQ/L (5-15); AST (SGOT) 407 U/L (17-59); BUN/CREATININE RATIO 11 RATIO (6-26); CHLORIDE 103 MEQ/L (98-107); CO2 - CARBON DIOXIDE 26 MEQ/L (22-30); CREATININE 0.8 MG/DL (0.8-1.5); GLOMERULAR FILTRATION RATE 109; GLUCOSE 79 MG/DL (75-110); LIPASE 1569 U/L (23-300); POTASSIUM 3.1 MEQ/L (3.6-5); SODIUM 134 MEQ/L (134-144); TOTAL PROTEIN 4.9 G/DL (6.3-8.2)
[2016-07-24 06:25] LABS: HGB - HEMOGLOBIN 9.3 GM/DL (13.5-17.5); MEAN CORPUSCULAR HGB 35.2 UUG (26-34); MEAN CORPUSCULAR HGB CONC(MCHC 35.8 GM/DL (31-37); MEAN CORPUSCULAR VOLUME 98.5 UM3 (80-100); MEAN PLATELET VOLUME 12.5 UM3 (9.4-12.4); RED BLOOD COUNT 2.64 M/MM3 (4.50-5.90)
[2016-07-24 06:26] LABS: INR 1.06 (0.76-1.04); PROTHROMBIN TIME 11.5 SEC (9.31-12.49)
[2016-07-24 07:01] LABS: EOSINOPHILS # (MANUAL) 0.1 T/MM3 (0-0.5); LYMPHOCYTES # (MANUAL) 1.5 T/MM3 (1-4.8); MONOCYTES # (MANUAL) 0.5 T/MM3 (0-0.8); NUCLEATED RED BLOOD CELLS 1; TOTAL CELLS COUNTED 100 %
[2016-07-24 07:03] LABS: STOMATOCYTES 1+; TARGET CELLS 1+
--- NOTE | 2016-07-24 07:17 | NUR ---
WEIGHT WEIGHT UP THIS AM. BED REZEROED AND PATIENT REWEIGHED. WEIGHT CHARTED IS ACCURATE.
--- NOTE | 2016-07-24 07:19 | NUR ---
SUMMARY PT SLEPT WELL THIS SHIFT. HAS BEEN UP SEVERAL TIMES TO USE THE BATHROOM ONE PERSON ASSIST. DENIED ANY PAIN. PT IS NOT USING THE CALL LIGHT. EDUCATED ABOUT CALL LIGHT USE AND PT SAFETY. FAMILY STAYED WITH HIM TILL MIDNIGHT. NO SIGNS OF WITHDRAWALS NOTED. WATCHING TV AT THE MOMENT.
[2016-07-24] MEDS: NS KCL 20 MEQ 1,000 ML IV SCH ×3 (07:48→20:48)
[2016-07-24] MEDS: LACTULOSE 20 GM/30 ML UD PO SCH ×3 (09:07→20:31)
[2016-07-24] MEDS: THIAMINE 200mg/2ml INJECTION IV SCH (09:07)
[2016-07-24] MEDS: LEVETIRACETAM 500 MG TABLET PO SCH ×2 (09:07→20:31)
[2016-07-24] MEDS: ARTIFICIAL TEARS 15 ML BOTTLE BOTH EYES PRN ×5 (09:08→20:30)
[2016-07-24] MEDS: FOLIC ACID 5 MG/ML INJECTION IV SCH (09:08)
[2016-07-24] MEDS: POTASSIUM CHLORIDE 20 MEQ TABLET PO SCH ×2 (10:07→16:55)
--- NOTE | 2016-07-24 14:58 | NUR ---
PATIENT DENIES DISMISSAL NEEDS. WILL DISMISS TO HOME. HAS GOOD FAMILY SUPPORT. CM CONTACT INFORMATION LEFT FOR REFERENCE. Addendum: 07/24/16 at 1459 by REFUGIO DICKERSON RN Amended: Links added.
--- NOTE | 2016-07-24 16:10 | PNPDOC ---
Subjective Date DATE: 07/24/16 TIME: 15:41 Subjective Pt reports he's still having some nausea this am but denies any vomiting. Denies any cp, sob. Pt is fixated on the idea that his seizure meds are what is causing problems with his liver and doesn't believe the EtOH is the culprit. Objective Vital Signs Vital signs Vital Signs Date Time Temp Pulse Resp B/P Pulse Ox O2 Delivery O2 Flow Rate FiO2 07/24/16 11:28 97.8 103 20 116/77 99 Room Air Telemetry Rhythm: Sinus Rhythm Height (Feet): 5 Height (Inches): 8.00 Weight (Kilograms): 77.400 General General Appearance: Alert, Orientated x 3 Eyes (Brief) Eyes: FOUND: EOMI, PERRL Neck (Brief) Neck: NOT FOUND: midline, nuchal rigidity Respiratory (Brief) Respiratory: FOUND: clear all sweeney, equal bilaterally Cardiovascular (Brief) Cardiac: FOUND: regular rate, regular rhythm Abdomen (Brief) Abdominal: FOUND: soft, NOT FOUND: tender Integumentary (Brief) Integumentary: FOUND: dry, NOT FOUND: rash Laboratory Laboratory Laboratory Tests 07/22/16 17:05 07/23/16 05:26 07/24/16 05:12 Laboratory Tests 07/22/16 17:04 07/23/16 05:26 07/24/16 05:12 Assessment & Plan Assessment Acute encephalopathy with confabulation/nystagmus -Likely Wernicke's from EtOH abuse vs. Hepatic encephalopathy -Dr. Plummer from neuro following -IV thiamine, folate, on lactulose as well -Wernickes tx Thiamine dose 500mg IV TID for 2 days, then 250mg daily x 5 days, then 100mg daily Alcohol Hepatitis -MDF 16, AST:ALT ratio consistent with EtOH abuse -Supportive tx with IV fluids, symptomatic tx, nutrition -CT abd shows severe hepatic steatosis -Possibly some component of pancreatitis but clinical sx's not fully consistent Thrombocytopenia -EtOH abuse likely etiology -Monitor Anemia -MCV on high end -Check B12, folate Seizure Disorder -On Keppra, neuro following -Briviact will be started when it becomes available Code Status Full Code, unverified Hospital Course Summary Disclaimer The hospital course summary below is not to be considered part of the above Progress Note. AYSHA CLINE MD Jul 24, 2016 16:02
--- NOTE | 2016-07-24 18:35 | NUR ---
STATUS PT IS A&O TO SELF. PT HAS BEEN CONFUSED THROUGHOUT THE DAY. PT REORIENTATED FREQUENTLY. ATTEMPTS REPEATEDLY TO GET OUT OF BED AND CHAIR UNASSISTED. CHAIR AND BED ALARMS USED. PT HAS AN UNSTEADY GAIT. PT IS ON RA. DENIES SOA. PT CONTINUES TO HAVE DARK BAHMAN URINE. FAMILY HAS BEEN WITH PATIENT THROUGHOUT THE DAY. PRN EYE DROPS GIVEN REQUESTED FOR DRY EYES. PT PULLED OUT HIS IV IN THE LEFT WRIST THIS AM AND A NEW IV WAS STARTED.
[2016-07-24] MEDS ORDERED: THIAMINE 200mg/2ml INJECTION IV SCH ×2 (21:00)
[2016-07-25] VITALS (8 sets, daily range): BP systolic 92–136; BP diastolic 60–86; PULSE 78–94; RESP 16–20; TEMP 96.2–99.7; O2SAT 95–99
[2016-07-25 06:29] LABS: HGB - HEMOGLOBIN 8.8 GM/DL (13.5-17.5); MEAN CORPUSCULAR HGB 34.9 UUG (26-34); MEAN CORPUSCULAR HGB CONC(MCHC 35.2 GM/DL (31-37); MEAN CORPUSCULAR VOLUME 99.2 UM3 (80-100); MEAN PLATELET VOLUME 11.7 UM3 (9.4-12.4); RED BLOOD COUNT 2.52 M/MM3 (4.50-5.90); WBC - WHITE BLOOD COUNT 6.7 T/MM3 (4.5-11.0)
--- NOTE | 2016-07-25 06:39 | NUR ---
SUMMARY. PT ALERT WITH CONFUSION. PT SLEPT ON AND OFF THIS SHIFT. DENIED ANY PAIN. PT KEEP TAKING HIS GOWN OFF. HAS BEEN REORIENTED SEVERAL TIMES THIS SHIFT. SPOUSE AT BEDSIDE. PT HAS BEEN IN THE BATHROOM SEVERAL TIMES THIS SHIFT. LIQUID STOOL AND DARK BAHMAN URINE. WILL CONTINUE TO MONITOR.
[2016-07-25 06:41] LABS: ALBUMIN 2.4 G/DL (3.5-5.0); ALKALINE PHOSPHATASE 117 U/L (38-126); ALT (SGPT) 202 U/L (21-72); ANION GAP 7 MEQ/L (5-15); AST (SGOT) 439 U/L (17-59); BUN/CREATININE RATIO 5 RATIO (6-26); CALCIUM 8.2 MG/DL (8.4-10.2); CHLORIDE 106 MEQ/L (98-107); CO2 - CARBON DIOXIDE 23 MEQ/L (22-30); CREATININE 0.8 MG/DL (0.8-1.5); GLOMERULAR FILTRATION RATE 109; GLUCOSE 79 MG/DL (75-110); MAGNESIUM 1.6 MG/DL (1.6-2.3); SODIUM 136 MEQ/L (134-144); TOTAL PROTEIN 4.8 G/DL (6.3-8.2)
[2016-07-25 07:06] LABS: BAND NEUTROPHILS # 0.2 T/MM3; EOSINOPHILS # (MANUAL) 0.1 T/MM3 (0-0.5); LYMPHOCYTES # (MANUAL) 2.4 T/MM3 (1-4.8); MONOCYTES # (MANUAL) 1.3 T/MM3 (0-0.8); NEUTROPHILS #(MANUAL)-ABSOLUTE 2.7 T/MM3 (1.8-7.7); STOMATOCYTES 1+; TARGET CELLS 1+; TOTAL CELLS COUNTED 100 %
[2016-07-25] MEDS: LACTULOSE 20 GM/30 ML UD PO SCH ×3 (08:50→20:08)
[2016-07-25] MEDS: ARTIFICIAL TEARS 15 ML BOTTLE BOTH EYES PRN ×2 (08:50→11:09)
[2016-07-25] MEDS: FOLIC ACID 5 MG/ML INJECTION IV SCH (08:50)
[2016-07-25] MEDS: LEVETIRACETAM 500 MG TABLET PO SCH ×2 (08:50→20:08)
[2016-07-25] MEDS ORDERED: GADOBUTROL 10mMol/10ml INJECTION IV ONE (09:08)
[2016-07-25] MEDS ORDERED: SALINE FLUSH 10ml SYRINGE ONE (09:09)
[2016-07-25] MEDS: NORMAL SALINE IV SCH ×3 (10:23→20:09)
[2016-07-25] MEDS: THIAMINE IV SCH ×3 (10:23→20:09)
[2016-07-25] MEDS: LORAZEPAM 2 MG/ML INJECTION IV PRN (13:46)
--- NOTE | 2016-07-25 13:46 | NUR ---
mental Pt is alert and knows way he is here,but then he is standing at his bedside asking for a cutters to cut his iv tubing states he needs to fix it, i can buy it at the mall. assited back to bed iv tubing replaced. states i will fix the brakes later Ativan 1 mg given sivp .bed alarm is one.
--- NOTE | 2016-07-25 14:12 | PNPDOC ---
Subjective Date DATE: 07/25/16 TIME: 14:07 Subjective Pt is complaining of some dizziness this am but denies any n/v, f/c, cp or sob. Does report some loose stools but no blood or melena. Objective Vital Signs Vital signs Vital Signs Date Time Temp Pulse Resp B/P Pulse Ox O2 Delivery O2 Flow Rate FiO2 07/25/16 11:18 97.8 94 20 102/74 98 Room Air Telemetry Rhythm: Sinus Rhythm Height (Feet): 5 Height (Inches): 8.00 Weight (Kilograms): 78.700 General General Appearance: Alert, Orientated x 3 ENMT (Brief) ENMT: FOUND: mucosa moist, NOT FOUND: nasal erythema Neck (Brief) Neck: NOT FOUND: nuchal rigidity Respiratory (Brief) Respiratory: FOUND: clear all sweeney, equal bilaterally Cardiovascular (Brief) Cardiac: FOUND: regular rate, regular rhythm Abdomen (Brief) Abdominal: FOUND: soft, NOT FOUND: tender Extremities (Brief) Extremity : Extremity Finding: NOT FOUND: clubbing, cyanosis Integumentary (Brief) Integumentary: FOUND: dry, NOT FOUND: rash Psychiatric (Brief) Psychiatric: FOUND: alert, oriented Laboratory Laboratory Laboratory Tests 07/24/16 05:12 07/25/16 06:03 Laboratory Tests 07/24/16 05:12 07/25/16 06:03 Assessment & Plan Assessment Acute encephalopathy with confabulation/nystagmus -Likely Wernicke's from EtOH abuse vs. Hepatic encephalopathy -Dr. Plummer from neuro following -IV thiamine, folate, on lactulose as well -Wernickes tx Thiamine dose 500mg IV TID for 2 days, then 250mg daily x 5 days, then 100mg daily -MRI with and without ordered to evaluate for other possible causes Alcohol Hepatitis -MDF 16, AST:ALT ratio consistent with EtOH abuse -Supportive tx with IV fluids, symptomatic tx, nutrition -CT abd shows severe hepatic steatosis -Possibly some component of pancreatitis but clinical sx's not fully consistent Thrombocytopenia -EtOH abuse likely etiology -Monitor Anemia -MCV on high end -Check B12, folate Seizure Disorder -On Keppra, neuro following -Briviact will be started when it becomes available Code Status Full Code, unverified Hospital Course Summary Disclaimer The hospital course summary below is not to be considered part of the above Progress Note. AYSHA CLINE MD Jul 25, 2016 14:11
--- NOTE | 2016-07-25 18:25 | NUR ---
shift status Pt has pulled out his ivl and made L arm iv leak by touching it all the time.Iv restarted in R hand and wrapped securly. rambles on talks to peolpe who are not in room. up to br with 2 people voided lg amt dark orange urine passing flatus back to bed father in room encouraging to take some clear liquids. remains restless twitching noted at times. continue to observe. bed alarm is on bed rails up x3,
[2016-07-25] MEDS: NS KCL 20 MEQ 1,000 ML IV SCH (22:00)
--- NOTE | 2016-07-25 22:40 | NUR ---
PROVIDER NOTIFIED PT FATHER CAME OUT AND STATES THAT PT IS COMPLAINING OF HEARTBURN AND WOULD LIKE SOMETHING FOR THIS. NOTIFIED PHYSICIAN AND TUMS WERE ORDERED PRN. WILL CONTINUE TO MONITOR.
[2016-07-25] MEDS ORDERED: CALCIUM CARBONATE 750mg Chewable TAB PO PRN (22:45)
--- NOTE | 2016-07-25 22:49 | NUR ---
FAMILY COMMUNICATION PT MOTHER CALLED TO CHECK ON STATUS OF PT. MOTHER STATES THAT SHE BELIEVES THAT KEPPRA IS CAUSING SOME OF HIS CONFUSION. THIS RN INSTRUCTED HER TO NOTIFY THE PHYSICIAN ON THIS CONCERN AND THIS RN WILL PASS ON TO THE NEXT RN THE CONCERN WELL.
[2016-07-26 01:44] LABS: FREE T4 (FREE THYROXINE)-BATCH 1.37 NG/DL (0.78-2.19)
[2016-07-26 02:47] LABS: FOLATE 4.5 NG/ML (2.76-20)
[2016-07-26 03:42] VITALS: BP 117/74; PULSE 79; RESP 18; TEMP 96.5; O2SAT 99
[2016-07-26] MEDS: NS KCL 20 MEQ 1,000 ML IV SCH ×2 (04:15→09:27)
[2016-07-26 05:28] LABS: HCT - HEMATOCRIT 27.1 % (41-53); HGB - HEMOGLOBIN 9.5 GM/DL (13.5-17.5); MEAN CORPUSCULAR HGB 35.3 UUG (26-34); MEAN CORPUSCULAR HGB CONC(MCHC 35.1 GM/DL (31-37); MEAN CORPUSCULAR VOLUME 100.7 UM3 (80-100); RED BLOOD COUNT 2.69 M/MM3 (4.50-5.90); WBC - WHITE BLOOD COUNT 10.6 T/MM3 (4.5-11.0)
[2016-07-26 05:44] LABS: ALBUMIN 2.7 G/DL (3.5-5.0); ALKALINE PHOSPHATASE 148 U/L (38-126); ALT (SGPT) 216 U/L (21-72); ANION GAP 9 MEQ/L (5-15); AST (SGOT) 423 U/L (17-59); BLOOD UREA NITROGEN < 2.0 MG/DL (9-20); CALCIUM 8.6 MG/DL (8.4-10.2); CHLORIDE 106 MEQ/L (98-107); CO2 - CARBON DIOXIDE 23 MEQ/L (22-30); CREATININE 0.8 MG/DL (0.8-1.5); GLOMERULAR FILTRATION RATE 109; GLUCOSE 81 MG/DL (75-110); SODIUM 138 MEQ/L (134-144); TOTAL PROTEIN 5.5 G/DL (6.3-8.2)
--- NOTE | 2016-07-26 06:00 | NUR ---
Shift Summary: Pt has been awake frequently during the night and bails at times. Pt remains on room air. Pt out of bed this am and ripped the IV tubing and blood was back flowing and blood was all over the rails, floor, body, etc. Pt is confused frequently throughout the shift. Pt frequently reoriented. Pt is up with assist of two due to unsteadiness. Talked with Dr. Davis during the night regarding Ammonia level not being drawn in the last couple of days. Dr. Davis declines need for Ammonia lab redraw. Also discussed amount of Lactulose and Pt's BM's about every hour. states he will pass on that Lactulose needs to be decreased. Will continue to monitor.
[2016-07-26 06:17] LABS: BAND NEUTROPHILS # 0.5 T/MM3; BASOPHILS # (MANUAL) 0.2 T/MM3 (0-0.2); LYMPHOCYTES # (MANUAL) 2.3 T/MM3 (1-4.8); MONOCYTES # (MANUAL) 1.9 T/MM3 (0-0.8); NEUTROPHILS #(MANUAL)-ABSOLUTE 5.6 T/MM3 (1.8-7.7); NUCLEATED RED BLOOD CELLS 4; STOMATOCYTES 1+; TARGET CELLS 1+; TOTAL CELLS COUNTED 100 %
--- NOTE | 2016-07-26 07:40 | DI ---
Indication: ITS.REASON: Nystagmus, diplopia, possible wernickes PROCEDURE: MRI BRAIN W/WO CONTRAST: Encounter: Initial Comparisons: January 02, 2016 Technique: Multiplanar, multisequence, MR imaging of the head with and without contrast was acquired. Contrast: 7.5 mL of Gadavist FINDINGS: Motion artifact limits multiple sequences. Cerebellar atrophy. The ventricles are grossly normal. The brain stem, cerebellum, and cerebral hemispheres otherwise have a normal morphologic appearance as well as MR signal intensity on all pulse sequences. Following intravenous administration of contrast, no areas of abnormal enhancement are evident. There are no obvious areas of restricted diffusion to suggest an acute infarct. There is no gross evidence of an intracranial mass lesion, intracranial hemorrhage, or hydrocephalus. The visualized portions of the orbits, calvarium, paranasal sinuses, and skull base demonstrate no significant abnormality. IMPRESSION: Very limited exam due to motion. No obvious acute intracranial abnormality. .
[2016-07-26 08:06] VITALS: BP 116/71; PULSE 102; RESP 18; TEMP 97.4; O2SAT 98
--- NOTE | 2016-07-26 09:00 | NUR ---
Doctor Notified doctor of low BGMs, averaging 50's-90's and no sliding scale has been used for high BGMs since admission. Poor intake this am, states his tongue is sore from biting it during past seizure. Also notified that his skin is irritated/bruising from tele patches and patient continues to take electrodes off. No new orders received. Tele reapplied and clear liqs offered.
[2016-07-26] MEDS: LACTULOSE 20 GM/30 ML UD PO SCH ×3 (09:33→21:10)
[2016-07-26] MEDS: FOLIC ACID 5 MG/ML INJECTION IV SCH (09:34)
[2016-07-26] MEDS: NORMAL SALINE IV SCH ×3 (09:37→21:10)
[2016-07-26] MEDS: THIAMINE IV SCH ×3 (09:37→21:10)
--- NOTE | 2016-07-26 10:53 | NUR ---
Status Patient alert and oriented to person, place, and time however continues with having a flight of ideas. Patient up in shower with assist and then placed in wheelchair and made patient wheel self around hospital. Lactulose TID, several diarrhea stools charted. Bottom is red and painful with wiping, barrier cream applied.
[2016-07-26] MEDS: BRIVARACETAM 50 MG PO SCH ×2 (11:25→21:10)
[2016-07-26 11:29] VITALS: BP 117/77; PULSE 84; RESP 18; TEMP 98.1; O2SAT 98
--- NOTE | 2016-07-26 14:57 | NUR ---
PATIENT ASLEEP. NO FAMILY AVAILABLE. WILL ATTEMPT TO REACH FAMILY.
--- NOTE | 2016-07-26 16:10 | PNF ---
DATE 07/26/[address] Deana So CHIEF COMPLAINT Seizure. Wernicke's encephalopathy. HISTORY OF PRESENT ILLNESS The patient has done better over the weekend. His nystagmus and eye movement have improved significantly. He continues to have vertical and bouncing nystagmus in the eyes. He is also having double vision which is exacerbated by looking to the right side. He is able to move his eyes in all directions with some mild limitation toward the right. He had no seizure over the weekend as per his father and nurses. His thiamine dosage was increased to 250 mg IV once a day. He was able to tolerate the Keppra well. He has been able to walk with mild assistance. His coordination for [id number] has improved. He continues to have mild dysmetria bilaterally. This has been exacerbated by the double vision. He has had no weakness or numbness. He had an MRI of the brain that showed no significant abnormalities. ASSESSMENT AND PLAN 1. Wernicke's encephalopathy, improving with thiamine IV infusion. 2. Complex partial seizure controlled with Keppra 500 mg p.o. b.i.d. This can be switched to Briviact which is T 50 mg p.o. b.i.d. to improve mood side effect and dizziness. MTDD
[2016-07-26 16:51] VITALS: BP 108/83; PULSE 82; RESP 16; TEMP 97.9; O2SAT 98
[2016-07-26] MEDS ORDERED: MAG-AL + SIM LIQUID 30 ML UDC PO ONE (17:15)
[2016-07-26] MEDS ORDERED: OMEPRAZOLE 20 MG CAPSULE PO SCH (17:15)
--- NOTE | 2016-07-26 17:50 | PNPDOC ---
Subjective Date DATE: 07/26/16 TIME: 17:36 Subjective The patient was seen this evening accompanied by his father. Patient complains of being hungry and is still on clear liquids. He also complains of heartburn which she states he has had off and on for years and takes omeprazole at home. His eyes have been mattery and still felt irritated. He also continues to have blurry vision. His father stated that he was in a wheelchair today and they will to around the hospital. The patient continues to be fairly confused and states he's been ordered clear liquids for 2 weeks. He also states he's in the emergency room in [place]. He later states that it's 2018 and then when I said no he said well will be now it's 2016. He stated that it is September. When I told him we were going to order physical therapy to see him tomorrow, he asked if that could be later in the day because his brother is working on a [employer] program and he wants his brother to be with him. Objective Vital Signs Vital signs Vital Signs Date Time Temp Pulse Resp B/P Pulse Ox O2 Delivery O2 Flow Rate FiO2 07/26/16 16:51 97.9 82 16 108/83 98 Room Air Weight is 78.4 kg up from 73.9 on admission. GEN-alert, jaundiced confused, possibly still confabulating, no acute distress HEENT-sclera are icteric, no erythema, eyes are mattery, pupils are equal, patient continues to have nystagmus and ophthalmoplegia NECK-supple CV-regular rate and rhythm CHEST-clear to auscultation bilaterally ABD-soft, nontender, nondistended with positive bowel sounds -no Nicole EXT-trace edema NEURO-significant nystagmus, ophthalmoplegia, continued confusion SKIN-warm and dry, continues to be jaundiced Telemetry Rhythm: Sinus Rhythm Height (Feet): 5 Height (Inches): 8.00 Weight (Kilograms): 78.400 Laboratory Laboratory Laboratory Tests 07/25/16 06:03 07/26/16 04:52 Laboratory Tests 07/25/16 06:03 07/26/16 04:52 Radiology MRI is a very limited exam due to motion. No obvious acute intracranial abnormality Assessment & Plan Assessment Acute encephalopathy with confabulation/nystagmus -Likely Wernicke's from EtOH abuse vs. Hepatic encephalopathy -Dr. Plummer from neuro following -IV thiamine, folate, on lactulose as well -Wernickes tx Thiamine dose 500mg IV TID for 2 days, tomorrow start 250mg daily x 5 days, then 100mg daily -MRI done yesterday is limited due to artifact but no obvious abnormalities -Patient continues to be confused and confabulating despite several days of IV thiamine Alcohol Hepatitis -MDF 16, AST:ALT ratio consistent with EtOH abuse -Supportive tx with IV fluids, titrate down IV fluids, possibly off tomorrow -CT abd shows severe hepatic steatosis -Possibly some component of pancreatitis but clinical sx's not fully consistent- the patient is hungry, advance diet as tolerated Thrombocytopenia -EtOH abuse likely etiology -Monitor Anemia -MCV on high end -Check B12, folate -May be in part dilutional Seizure Disorder -Briviact started today -no seizures this hospitalization -Dr. Plummer continues to follow We'll consult PT and OT for gait instability. Patient may need inpatient rehabilitation versus alf if he is significantly unstable. Continue on IV thiamine. Advance diet as tolerated and decrease IV fluids as tolerated Check CBC, CMP, magnesium, phosphorus tomorrow. Start Ciloxan eyedrops Patient continues to confabulate fairly significantly. Continue IV thiamine, provide safe environment and monitor. Regarding GERD, will give Maalox now and start scheduled omeprazole. DVT Prophylaxis: SCD'S Code Status Full Code, unverified Hospital Course Summary Disclaimer The hospital course summary below is not to be considered part of the above Progress Note. SMITHA ROMERO MD Jul 26, 2016 17:42
[2016-07-26] MEDS: OMEPRAZOLE 20 MG CAPSULE PO SCH (18:41)
[2016-07-26 19:50] VITALS: BP 122/85; PULSE 82; RESP 16; TEMP 96.7; O2SAT 99
[2016-07-26] MEDS: CIPROFLOXACIN 0.3% BOTH EYES SCH (21:11)
[2016-07-26] MEDS: EYE BOTH EYES SCH (21:11)
[2016-07-26 23:40] VITALS: BP 131/75; PULSE 109; RESP 20; TEMP 96.5; O2SAT 100
[2016-07-27] MEDS: NS KCL 20 MEQ 1,000 ML IV SCH (01:56)
[2016-07-27 03:00] LABS: HEPATITIS B SURFACE AG - BATCH NEGATIVE (NEGATIVE)
[2016-07-27 04:28] VITALS: BP 115/82; PULSE 89; RESP 20; TEMP 98.9; O2SAT 100
[2016-07-27 05:09] LABS: HCT - HEMATOCRIT 26.4 % (41-53); HGB - HEMOGLOBIN 8.9 GM/DL (13.5-17.5); MEAN CORPUSCULAR HGB 34.5 UUG (26-34); MEAN CORPUSCULAR HGB CONC(MCHC 33.7 GM/DL (31-37); MEAN CORPUSCULAR VOLUME 102.3 UM3 (80-100); MEAN PLATELET VOLUME 11.8 UM3 (9.4-12.4); RED BLOOD COUNT 2.58 M/MM3 (4.50-5.90); WBC - WHITE BLOOD COUNT 11.7 T/MM3 (4.5-11.0)
[2016-07-27 05:18] LABS: ALBUMIN 2.6 G/DL (3.5-5.0); ALBUMIN/GLOBULIN RATIO 1.1 RATIO (1.1-2.2); ALKALINE PHOSPHATASE 161 U/L (38-126); ALT (SGPT) 186 U/L (21-72); ANION GAP 8 MEQ/L (5-15); AST (SGOT) 357 U/L (17-59); BLOOD UREA NITROGEN < 2.0 MG/DL (9-20); CALCIUM 8.2 MG/DL (8.4-10.2); CHLORIDE 107 MEQ/L (98-107); CO2 - CARBON DIOXIDE 24 MEQ/L (22-30); CREATININE 0.8 MG/DL (0.8-1.5); GLOMERULAR FILTRATION RATE 109; GLUCOSE 87 MG/DL (75-110); MAGNESIUM 1.5 MG/DL (1.6-2.3); POTASSIUM 3.8 MEQ/L (3.6-5); SODIUM 139 MEQ/L (134-144)
[2016-07-27 05:20] LABS: PHOSPHORUS < 0.5 MG/DL (2.5-4.5)
[2016-07-27] MEDS: OMEPRAZOLE 20 MG CAPSULE PO SCH ×2 (05:39→17:02)
[2016-07-27 05:44] LABS: BAND NEUTROPHILS # 0.2 T/MM3; LYMPHOCYTES # (MANUAL) 4.3 T/MM3 (1-4.8); MONOCYTES # (MANUAL) 0.6 T/MM3 (0-0.8); NEUTROPHILS #(MANUAL)-ABSOLUTE 6.6 T/MM3 (1.8-7.7); NUCLEATED RED BLOOD CELLS 6; STOMATOCYTES 1+; TARGET CELLS 1+; TOTAL CELLS COUNTED 100 %
--- NOTE | 2016-07-27 06:03 | NUR ---
SUMMARY. PT IS ALERT WITH CONFUSION. HE HAS BEEN UP SEVERAL TIMES THIS SHIFT. PT IS NOT USING THE CALL LIGHT. EDUCATED ABOUT CALL LIGHT USE. DENIED ANY PAIN. ATE A PIECE OF TURKEY SANDWICH LAST NIGHT. VOICED THAT HIS STOMACH IS NOT READY FOR FOOD YET. PHOSPHORUS LEVELS LOW THIS MORNING. DR KIM GAVE AN ORDER FOR PHOS-NAK TID AND GIVE ONE NOW. WILL CONTINUE TO MONITOR.
[2016-07-27] MEDS: POT PO SCH ×3 (06:18→21:02)
[2016-07-27] MEDS: SOD PO SCH ×3 (06:18→21:02)
[2016-07-27] MEDS: PHOSPHORUS PO SCH ×3 (06:18→21:02)
[2016-07-27] MEDS ORDERED: OMEPRAZOLE 20 MG CAPSULE PO SCH (06:30)
[2016-07-27] MEDS ORDERED: NORMAL SALINE IV ONE (07:30)
[2016-07-27] MEDS ORDERED: POTASSIUM PHOSPHATE IV ONE (07:30)
[2016-07-27 07:54] VITALS: BP 137/84; PULSE 88; RESP 12; TEMP 98.7; O2SAT 97
[2016-07-27 08:00] VITALS: PULSE 100; RESP 12
[2016-07-27] MEDS: FOLIC ACID 5 MG/ML INJECTION IV SCH (08:05)
[2016-07-27] MEDS: LACTULOSE 20 GM/30 ML UD PO SCH ×3 (08:05→21:02)
[2016-07-27] MEDS: BRIVARACETAM 50 MG PO SCH ×2 (08:05→21:02)
[2016-07-27] MEDS: EYE BOTH EYES SCH ×4 (08:06→21:02)
[2016-07-27] MEDS: CIPROFLOXACIN 0.3% BOTH EYES SCH ×4 (08:06→21:02)
[2016-07-27] MEDS ORDERED: THIAMINE 200mg/2ml INJECTION IV SCH (09:00)
[2016-07-27 12:09] VITALS: BP 122/73; PULSE 86; RESP 16; TEMP 97.1; O2SAT 99
--- NOTE | 2016-07-27 14:50 | PNF ---
DATE 07/27/[address] So The patient's chief complaint is Wernicke encephalopathy and seizure disorder. HISTORY OF PRESENT ILLNESS/FINDINGS The patient has been taking Briviact for the past two days. He has had no seizure and no significant side effect. He continues to have double vision and nystagmus. His is also having difficulty with dysmetria and coordination. This has been stable since last evaluation. The patient also complained of mild headache. His liver enzymes continue to be slightly elevated. He also had elevated TSH level. His white count is slightly elevated compared to admission. His vitals have been stable with no signs of fever or sepsis. The patient had no new focal neurological deficit. ASSESSMENT AND PLAN 1. Wernicke encephalopathy treated with thiamine, folic acid and lactulose. Tis has been slowly improving during the course of admission. 2. Complex partial seizure treated with Briviact 50 mg p.o. b.i.d. with good result and no apparent seizure problem. 3. Depression and anxiety disorder associated with the history of alcohol abuse. The patient will benefit from having a psych evaluation eventually. Thank you. DAREN
[2016-07-27] MEDS: THIAMINE IV SCH (15:35)
[2016-07-27] MEDS: NORMAL SALINE IV SCH (15:35)
--- NOTE | 2016-07-27 15:43 | NUR ---
Tayler GALLAGHER STATES THAT PATIENT WILL TRANSITION TO HOME. SHE WILL BE THERE TO HELP CARE FOR HIM AND HIS DAD WILL ALSO BE AVAILABLE. AILEEN DENIES FURTHER DISMISSAL NEEDS.
--- NOTE | 2016-07-27 16:05 | NUR ---
MEDICATION pt was to have a 0900 am daily dose of thiamine as a piggyback. pt phosphorus was low so Dr. ramirez potassium phosphate ran before any other medications. potassium phosphate took over 6.5 hours. after that thiamine was started at 1535.
--- NOTE | 2016-07-27 16:08 | NUR ---
STATUS pt is alert and oriented X3. pt is still confused at times but making more sense this shift. pt is also speaking more clearly this shift. hugo stated she can understand him better today and feels like he is better today. pt has denied pain. pt sat in the chair to eat his meal. pt has ambulated with assist X1 using a gaitbelt and walker to the bathroom. pt is on room air. pt is resting in bed visiting with his fiance. pt denies needing anything at this time. will continue to monitor pt.
[2016-07-27 16:13] VITALS: BP 110/78; PULSE 85; RESP 18; TEMP 97.6; O2SAT 100
--- NOTE | 2016-07-27 16:40 | PNPDOC ---
Subjective Date DATE: 07/27/16 TIME: 16:25 Subjective The patient states he is feeling a little bit better today. He was able to eat regular food for breakfast and lunch. He denies any nausea or heartburn currently. He denies any pain anywhere. He is still unstable when he gets up to walk. He continues to have difficulties with his vision but thinks it's a little better. He continues to confabulate at times. He had 8 bowel movements yesterday and 5 today on lactulose. Objective Vital Signs Vital signs Vital Signs Date Time Temp Pulse Resp B/P Pulse Ox O2 Delivery O2 Flow Rate FiO2 07/27/16 16:13 97.6 85 18 110/78 100 Room Air Weight is 76.3 kg up from 73.9 kg on admission GEN-alert, looks better than I've seen him during this hospital course, still jaundiced, oriented to self and [place] but thought this was via [facility]. He thinks it is October 2016 HEENT-sclera are icteric, he continues to have mattering around his eyes, ophthalmoplegia is improving. He continues to have both vertical and horizontal nystagmus NECK-supple CV-regular rate and rhythm CHEST-clear to auscultation bilaterally ABD-soft, nontender, nondistended with positive bowel sounds -no Nicole EXT-+1 pretibial edema bilaterally, likely secondary to IV fluids and hypoalbuminemia NEURO-minimal tremors, continued nystagmus, improved ophthalmoplegia SKIN-jaundiced, warm and dry Telemetry Rhythm: Sinus Rhythm Height (Feet): 5 Height (Inches): 8.00 Weight (Kilograms): 76.300 Laboratory Laboratory Item Value Date Time Phosphorus Level 0.6 MG/DL L 07/27/16 1334 Phosphorus Level < 0.5 MG/DL *L 07/27/16 0423 Magnesium Level 1.5 MG/DL L 07/27/16 0423 Total Bilirubin 9.10 MG/DL H 07/27/16 0423 Aspartate Amino Transf (AST/SGOT) 357 U/L H 07/27/16 0423 Alanine Aminotransferase (ALT/SGPT) 186 U/L H 07/27/16 0423 Alkaline Phosphatase 161 U/L H 07/27/16 0423 Total Protein 5.0 G/DL L 07/27/16 0423 Albumin 2.6 G/DL L 07/27/16 0423 Globulin 2.4 G/DL 07/27/16 0423 Ammonia 13 UMOL/L 07/27/16 1334 Glucometer 88 mg/dL 07/27/16 1132 Glucometer 68 mg/dL L 07/27/16 1109 Glucometer 79 mg/dL 07/27/16 0537 Glucometer 83 mg/dL 07/27/16 0149 Glucometer 73 mg/dL L 07/26/16 2108 Glucometer 76 mg/dL 07/26/16 1839 Laboratory Tests 07/26/16 04:52 07/27/16 04:23 Laboratory Tests 07/26/16 04:52 07/27/16 04:23 Assessment & Plan Assessment 07/27/2016 Impression encephalopathy with confabulation and nystagmus-probable Wernieke's -MRI limited by motion, but without obvious abnormality Gait instability Alcoholic hepatitis-liver enzymes stable to improving Severe hepatic steatosis Thrombocytopenia-improving Elevated lipase without pancreatitis on CT or obvious symptoms of pancreatitis Anemia with elevated MCV-drop in hemoglobin since admission likely dilutional History of seizure disorder (none this hospitalization)-uncertain if alcohol related-chronically on seizure medication. Changed to Briviact yesterday on recommendation of neurologist because of possible intolerance to previous seizure medication. Hypomagnesemia Hypophosphatemia GERD Plan Continue IV thiamine as ordered PT and OT for strengthening-I think the patient would benefit from inpatient rehabilitation for continued treatment of encephalopathy with IV thiamine and for strengthening. If the patient does go home he will need 24-hour supervision. Because of his encephalopathy, he is not safe to be alone. Continue to monitor liver enzymes. Continue to advance diet as tolerated. DC IV fluids today. Continue lactulose for possible hepatic encephalopathy Patient would benefit from gastroenterology consult as an outpatient. The patient had severe hypophosphatemia which was treated with both IV and oral phosphate today. Recheck phosphorus tomorrow. Recheck magnesium tomorrow. DVT Prophylaxis: SCD'S Code Status Full Code, unverified Hospital Course Summary Disclaimer The hospital course summary below is not to be considered part of the above Progress Note. Hospital Course Summary Acute encephalopathy with confabulation/nystagmus -Likely Wernicke's from EtOH abuse vs. Hepatic encephalopathy -Dr. Plummer from neuro following -IV thiamine, folate, on lactulose as well -Wernickes tx Thiamine dose 500mg IV TID for 2 days, tomorrow start 250mg daily x 5 days, then 100mg daily -MRI done yesterday is limited due to artifact but no obvious abnormalities -Patient continues to be confused and confabulating despite several days of IV thiamine Alcohol Hepatitis -MDF 16, AST:ALT ratio consistent with EtOH abuse -Supportive tx with IV fluids, titrate down IV fluids, possibly off tomorrow -CT abd shows severe hepatic steatosis -Possibly some component of pancreatitis but clinical sx's not fully consistent- the patient is hungry, advance diet as tolerated Thrombocytopenia -EtOH abuse likely etiology -Monitor Anemia -MCV on high end -Check B12, folate -May be in part dilutional Seizure Disorder -Briviact started today -no seizures this hospitalization -Dr. Plumemr continues to follow We'll consult PT and OT for gait instability. Patient may need inpatient rehabilitation versus snf if he is significantly unstable. Continue on IV thiamine. Advance diet as tolerated and decrease IV fluids as tolerated Check CBC, CMP, magnesium, phosphorus tomorrow. Start Ciloxan eyedrops Patient continues to confabulate fairly significantly. Continue IV thiamine, provide safe environment and monitor. Regarding GERD, will give Maalox now and start scheduled omeprazole. SMITHA ROMERO MD Jul 27, 2016 16:29
[2016-07-27] MEDS: MAGNESIUM SULFATE 1 G in D5W 100 ML IV SCH ×2 (16:57→18:16)
[2016-07-27 19:40] VITALS: BP 106/77; PULSE 90; RESP 14; TEMP 97.1; O2SAT 100
[2016-07-28] VITALS (7 sets, daily range): BP systolic 112–136; BP diastolic 77–94; PULSE 73–104; RESP 14–18; TEMP 96.2–98.2; O2SAT 97–100
[2016-07-28 05:27] LABS: HCT - HEMATOCRIT 28.1 % (41-53); HGB - HEMOGLOBIN 9.7 GM/DL (13.5-17.5); MEAN CORPUSCULAR HGB 36.1 UUG (26-34); MEAN CORPUSCULAR HGB CONC(MCHC 34.5 GM/DL (31-37); MEAN CORPUSCULAR VOLUME 104.5 UM3 (80-100); MEAN PLATELET VOLUME 11.5 UM3 (9.4-12.4); RED BLOOD COUNT 2.69 M/MM3 (4.50-5.90); WBC - WHITE BLOOD COUNT 10.4 T/MM3 (4.5-11.0)
[2016-07-28 05:40] LABS: ALBUMIN 2.8 G/DL (3.5-5.0); ANION GAP 11 MEQ/L (5-15); BLOOD UREA NITROGEN < 2.0 MG/DL (9-20); CALCIUM 8.4 MG/DL (8.4-10.2); CHLORIDE 103 MEQ/L (98-107); CO2 - CARBON DIOXIDE 24 MEQ/L (22-30); CREATININE 0.7 MG/DL (0.8-1.5); GLOMERULAR FILTRATION RATE 127; GLUCOSE 87 MG/DL (75-110); MAGNESIUM 2.1 MG/DL (1.6-2.3); PHOSPHORUS 1.2 MG/DL (2.5-4.5); POTASSIUM 3.8 MEQ/L (3.6-5); SODIUM 138 MEQ/L (134-144)
[2016-07-28] MEDS: OMEPRAZOLE 20 MG CAPSULE PO SCH ×2 (05:49→17:08)
[2016-07-28 06:25] LABS: LYMPHOCYTES # (MANUAL) 3.1 T/MM3 (1-4.8); MONOCYTES # (MANUAL) 0.9 T/MM3 (0-0.8); NEUTROPHILS #(MANUAL)-ABSOLUTE 6.3 T/MM3 (1.8-7.7); NUCLEATED RED BLOOD CELLS 1; STOMATOCYTES 1+; TARGET CELLS 1+; TOTAL CELLS COUNTED 100 %
--- NOTE | 2016-07-28 06:28 | NUR ---
SUMMARY PT IS ALERT A&O WITH CONFUSION AT TIMES. PT SLEPT ON AND OFF THIS SHIFT. NO PRN MEDICATION GIVEN. DENIED ANY PAIN. PT HAS BEEN GETTING OUT OF BED WITHOUT ASSIST. EDUCATED ABOUT THE CALL LIGHT USE. PT HAS BEEN ASKING STAFFS IF THEY CAN TAKE HIM OUT TO SMOKE. REORIENTED THAT HE IS IN HOSPITAL AND HE CAN'T SMOKE IN HOSPITAL. HE WAS ALSO ASKING IF HE CAN GET SOME ALCOHOL. SPOUSE CAME TO SEE HIM FOR A SHORT TIME. ASSISTED SEVERAL TIMES TO THE BATHROOM ONE PERSON ASSIST.
[2016-07-28] MEDS: POT PO SCH (08:54)
[2016-07-28] MEDS: PHOSPHORUS PO SCH (08:54)
[2016-07-28] MEDS: BRIVARACETAM 50 MG PO SCH ×2 (08:54→21:09)
[2016-07-28] MEDS: SOD PO SCH (08:54)
[2016-07-28] MEDS: CIPROFLOXACIN 0.3% BOTH EYES SCH ×4 (09:11→21:09)
[2016-07-28] MEDS: LACTULOSE 20 GM/30 ML UD PO SCH ×3 (09:11→21:09)
[2016-07-28] MEDS: EYE BOTH EYES SCH ×4 (09:11→21:09)
[2016-07-28] MEDS: FOLIC ACID 5 MG/ML INJECTION IV SCH (09:12)
[2016-07-28] MEDS: NORMAL SALINE IV SCH (09:24)
[2016-07-28] MEDS: THIAMINE IV SCH (09:24)
[2016-07-28] MEDS: LORAZEPAM 2 MG/ML INJECTION IV PRN ×2 (10:01→21:09)
--- NOTE | 2016-07-28 10:01 | NUR ---
TACHYCARDIA PATIENT TACHYCARDIC IN THE 115-120S SUSTAINED. PATIENT VERY RESTLESS AND BECOMING AGITATED. 2MG ATIVAN PER PRN ORDER GIVEN.
--- NOTE | 2016-07-28 14:12 | PNF ---
DATE 07/28/[address] So PATIENT'S CHIEF COMPLAINT Seizure and Wernicke encephalopathy. HISTORY OF PRESENT ILLNESS The patient is doing better today. He has had better eye movement and less double vision. His coordination has improved with no significant dysmetria. He is still having confabulation problem and making up stories about leaving to [place] and having a to attend. He has had no new focal weakness or numbness. He is eating better. There are no signs of agitation or alcohol withdrawal problem. He is doing well on the Briviact with no signs of seizure or confusion. ASSESSMENT AND PLAN 1. Wernicke encephalopathy controlled with thiamine, folic acid and fluid. 2. Complex partial seizure controlled with Briviact. MTDD
--- NOTE | 2016-07-28 15:26 | NUR ---
DENIES DC NEEDS. WILL DISMISS TO HOME. HAS FAMILY SUPPORT AT HOME.
--- NOTE | 2016-07-28 17:45 | NUR ---
SHIFT SUMMARY VSS. RA. DENIES PAIN. PATIENT REMAINS CONFUSED. ONLY ORIENTED TO PERSON. SPEECH IS STILL SLIGHTLY SLURRED BUT HAS IMPROVED FROM EARLIER. PATIENT REMAINS VERY UNSTEADY COMPARED TO THIS MORNING BUT NO LATERAL WEAKNESS OF ANY KIND. PATIENT ABLE TO FOLLOW COMMANDS BUT APPEARS TO BE HALLUCINATING AT TIMES, GRABBING FOR THINGS THAT ARE NOT THERE. PATIENT DOES NOT USE CALL LIGHT AND FREQUENTLY BAILS OUT OF BED. TAKES MEDS WELL. PERIPHERAL IV LOCKED. MEAGER APPETITE TODAY. BED AND CHAIR ALARMS IN USE.
--- NOTE | 2016-07-28 19:22 | NUR ---
APPETITE PATIENT'S FATHER SAYS THAT PATIENT TYPICALLY DOES NOT EAT A LOT. WHAT HE ATE FOR SUPPER (1/2 SANDWICH) IS NORMAL FOR HIM.
--- NOTE | 2016-07-28 19:35 | PNPDOC ---
Subjective Date DATE: 07/28/16 TIME: 19:23 Subjective Was asleep late this morning after being given 2 mg Ativan. Later this afternoon he was alert and while having significant slurring speech was still understandable and largely coherent. Restated that he has not had a drink in a month and a half. His mother called twice with concerns of his condition. Spoke with his mother on the phone in front of him after his consent. She is concerned with his slurring speech and at this time this appears to be nothing cerebrovascular as MRI was negative. I explained that this is likely secondary to his alcoholism and this may or may not recover further. I impressed upon her that his cessation from alcohol is a requirement of preventing any further decline. I am uncertain of her level of denial. Objective Vital Signs Vital signs Vital Signs Date Time Temp Pulse Resp B/P Pulse Ox O2 Delivery O2 Flow Rate FiO2 07/28/16 15:24 98.2 98 18 112/83 97 Room Air Telemetry Rhythm: Sinus Rhythm Height (Feet): 5 Height (Inches): 8.00 Weight (Kilograms): 76.500 General General Appearance: Alert, Orientated x 3 Eyes (Brief) Eyes: FOUND: scleral icterus Respiratory (Brief) Respiratory: FOUND: clear all sweeney, equal bilaterally, NOT FOUND: rales, wheezes Cardiovascular (Brief) Cardiac: FOUND: regular rate, regular rhythm Abdomen (Brief) Abdominal: FOUND: BS normo active x4, soft Extremities (Brief) Extremity : Side: Bilateral Extremity Finding: FOUND: discoloration Integumentary (Brief) Comments Mildly icteric Neurologic (Brief) Pt. dx of Ischemic stroke: No Comments Patient continues to have slurred speech, but is largely understandable. He has a mild tremor at rest which is worse with intention. He is complaining of double vision and does have a nystagmus. His apraxia is quite severe, when attempting to seed cone picker an object he cannot localize Psychiatric (Brief) Psychiatric: FOUND: alert, oriented Comments I'm not certain the level of patience veracity regarding his alcoholism Laboratory Laboratory Laboratory Tests 07/27/16 04:23 07/28/16 04:42 Laboratory Tests 07/27/16 04:23 07/28/16 04:42 Assessment & Plan Problems: (1) Encephalopathy Status: Acute Assessment & Plan: This is likely Wernicke Korsakoff syndrome. As he has had reported confusion, his ataxia is severe and he does have the lateral nystagmus. At this time the confusion state does appear to be reversible. Continue high-dose thiamine. Cessation alcohol was impressed upon patient once again in a positive manner as possible within the context of his condition (2) Serum lipase elevation Status: Acute Assessment & Plan: Secondary to his alcoholism. Will continue to hydrate and follow labs Assessment 07/27/2016 Impression encephalopathy with confabulation and nystagmus-probable Wernieke's -MRI limited by motion, but without obvious abnormality Gait instability Alcoholic hepatitis-liver enzymes stable to improving Severe hepatic steatosis Thrombocytopenia-improving Elevated lipase without pancreatitis on CT or obvious symptoms of pancreatitis Anemia with elevated MCV-drop in hemoglobin since admission likely dilutional History of seizure disorder (none this hospitalization)-uncertain if alcohol related-chronically on seizure medication. Changed to Briviact yesterday on recommendation of neurologist because of possible intolerance to previous seizure medication. Hypomagnesemia Hypophosphatemia GERD Plan Continue IV thiamine as ordered PT and OT for strengthening-I think the patient would benefit from inpatient rehabilitation for continued treatment of encephalopathy with IV thiamine and for strengthening. If the patient does go home he will need 24-hour supervision. Because of his encephalopathy, he is not safe to be alone. Continue to monitor liver enzymes. Continue to advance diet as tolerated. DC IV fluids today. Continue lactulose for possible hepatic encephalopathy Patient would benefit from gastroenterology consult as an outpatient. The patient had severe hypophosphatemia which was treated with both IV and oral phosphate today. Recheck phosphorus tomorrow. Recheck magnesium tomorrow. Code Status Full Code, unverified Hospital Course Summary Disclaimer The hospital course summary below is not to be considered part of the above Progress Note. Hospital Course Summary Acute encephalopathy with confabulation/nystagmus -Likely Wernicke's from EtOH abuse vs. Hepatic encephalopathy -Dr. Plummer from neuro following -IV thiamine, folate, on lactulose as well -Wernickes tx Thiamine dose 500mg IV TID for 2 days, tomorrow start 250mg daily x 5 days, then 100mg daily -MRI done yesterday is limited due to artifact but no obvious abnormalities -Patient continues to be confused and confabulating despite several days of IV thiamine Alcohol Hepatitis -MDF 16, AST:ALT ratio consistent with EtOH abuse -Supportive tx with IV fluids, titrate down IV fluids, possibly off tomorrow -CT abd shows severe hepatic steatosis -Possibly some component of pancreatitis but clinical sx's not fully consistent- the patient is hungry, advance diet as tolerated Thrombocytopenia -EtOH abuse likely etiology -Monitor Anemia -MCV on high end -Check B12, folate -May be in part dilutional Seizure Disorder -Briviact started today -no seizures this hospitalization -Dr. Plummer continues to follow We'll consult PT and OT for gait instability. Patient may need inpatient rehabilitation versus usp if he is significantly unstable. Continue on IV thiamine. Advance diet as tolerated and decrease IV fluids as tolerated Check CBC, CMP, magnesium, phosphorus tomorrow. Start Ciloxan eyedrops Patient continues to confabulate fairly significantly. Continue IV thiamine, provide safe environment and monitor. Regarding GERD, will give Maalox now and start scheduled omeprazole. FELIX MCELROY MD Jul 28, 2016 19:26
--- NOTE | 2016-07-28 21:10 | NUR ---
Restlessness Pt is alert and oriented to person only. He is very restless trying to get out of bed and getting agitated when trying to redirect him. PRN Ativan given as charted to help with issue. Will continue to monitor.
[2016-07-29] VITALS (8 sets, daily range): BP systolic 104–127; BP diastolic 71–82; PULSE 93–110; RESP 18–20; TEMP 96.3–97.7; O2SAT 97–99
[2016-07-29] MEDS: LORAZEPAM 2 MG/ML INJECTION IV PRN (01:32)
--- NOTE | 2016-07-29 01:35 | NUR ---
Status Pt slept for about 4 hours, now he is up and restless again taking telemetry off and wanting to go home. Another dose of Ativan given. Will monitor patient. Significant other at bedside at this time.
--- NOTE | 2016-07-29 04:25 | NUR ---
Status: Pt bed alarm going off, this nurse entered room and Pt was kneeling at the foot of the bed pressing multiple buttons. Gown was off, Telemetry was pulled off and on the bedside table. Bedside table was pushed maybe a foot away from bedside. Three side rails in the up position. Pt is confused but denies hitting head. No abnormalities noted on head. Pt is acting just as he has been for days. No new bruising noted. Pt was assisted to stand x2 and ambulated with slow and slightly unsteady gait to the bathroom. Voided and had bowel movement then back to bed. VS: 113/75, Pulse 104, 98% RA, 96.3 Temp, R 18. Pt resting comfortably in bed with bed alarm on and side rails up x 3. Notified Staff nurse, Sam. Fabio Chaves and then received phone call to discuss Pt. No new orders received. Addendum: 07/29/16 at 0519 by LORA LAW RN Pt has been educated many times during the hospital stay by many nurses/staff to press the call light prior to getting up. Staff observes the Pt frequently and Pt is consistently reminded to press the call light or call out for help if needing assistance.
--- NOTE | 2016-07-29 05:33 | NUR ---
Family notified Unable to reach family to notified about incident, detailed voicemail was left to Evelyne Little listed as emergency contact on patient's profile. Will continue to monitor.
[2016-07-29] MEDS: OMEPRAZOLE 20 MG CAPSULE PO SCH ×2 (05:50→17:24)
--- NOTE | 2016-07-29 06:52 | NUR ---
Blood Sugar Pt's blood sugar was 70mg/dl this am, 4oz of orange juice given, will reassess. Will notify oncoming nurse.
[2016-07-29] MEDS: FOLIC ACID 5 MG/ML INJECTION IV SCH (08:46)
[2016-07-29] MEDS: LACTULOSE 20 GM/30 ML UD PO SCH ×3 (08:46→21:11)
[2016-07-29] MEDS: BRIVARACETAM 50 MG PO SCH ×2 (08:46→21:11)
[2016-07-29] MEDS: EYE BOTH EYES SCH ×4 (08:47→21:11)
[2016-07-29] MEDS: CIPROFLOXACIN 0.3% BOTH EYES SCH ×4 (08:47→21:11)
[2016-07-29] MEDS: THIAMINE IV SCH (08:55)
[2016-07-29] MEDS: NORMAL SALINE IV SCH (08:55)
--- NOTE | 2016-07-29 10:09 | NUR ---
SALVADOR CM IN TO VISIT WITH PATIENT, HE IS UP IN CHAIR-PATIENT HAS TROUBLE FOLLOWING CONVERSATION. CM TOLD PATIENT THAT PT RECOMMENDED IRU, DEPARTMENT EXPLAINED TO PATIENT AND HE COMMENTED THAT HE WAS HAVING TROUBLE EVEN WALKING ACROSS THE ROOM AND SAID IT WAS OK TO HAVE IRU COME TALK TO HIM. CM CALLED BILLIE TO NOTIFY AND PUT IN ORDER FOR IRU SCREEN.
--- NOTE | 2016-07-29 17:17 | NUR ---
IRU referral received. Initial attempted contact with patient he was sleeping. Second contact patient demonstrated slurred speech but answered questions appropriately. 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 Discussed option of IRU prior to discharge. He advises he would be willing to participate with 3 hour daily 5 day per week therapy expectations if he qualifies for admission to the unit. Will review with Dr. Brewer IRU Accounting Assistant to assess for admission qualification.
--- NOTE | 2016-07-29 19:36 | PNPDOC ---
Subjective Date DATE: 07/29/16 TIME: 19:27 Subjective Patient still complains of double vision and difficulty with picking things up and performing tasks. He states he is a little better and his double vision is not quite as bad; he is adapting. No new issues. States that he is working with physical therapy and occupational therapy Objective Vital Signs Vital signs Vital Signs Date Time Temp Pulse Resp B/P Pulse Ox O2 Delivery O2 Flow Rate FiO2 07/29/16 16:16 97.1 96 18 127/77 99 Room Air Telemetry Rhythm: Sinus Rhythm Height (Feet): 5 Height (Inches): 8.00 Weight (Kilograms): 75.700 General General Appearance: Alert, Orientated x 2, Unable to walk, Cooperative Eyes (Brief) Eyes: FOUND: EOMI, PERRL, scleral icterus Comments Still having a bit of laterals nystagmus and is significantly enteric Neck (Brief) Neck: NOT FOUND: JVD, nuchal rigidity Respiratory (Brief) Respiratory: FOUND: clear all sweeney, equal bilaterally, NOT FOUND: rales, wheezes Cardiovascular (Brief) Cardiac: FOUND: other, regular rhythm Capillary Refill: <2 sec Abdomen (Brief) Abdominal: FOUND: BS normo active x4, distended, soft Neurologic (Brief) Neurological: FOUND: motor, sensory, NOT FOUND: cerebellar Comments Patient still displays slight tremor and significant ataxia and severe dysmetria Psychiatric (Brief) Psychiatric: FOUND: alert, oriented Laboratory Laboratory Laboratory Tests 07/28/16 04:42 Laboratory Tests 07/28/16 04:42 Assessment & Plan Problems: (1) Wernicke-Korsakoff syndrome (alcoholic) Status: Acute Assessment & Plan: Continue high-dose thiamine. He has made some mild progress. At this time a change to physical therapy and longer-term care is going to be required. Believe he is an excellent candidate for rehab (2) Encephalopathy Status: Acute Assessment & Plan: This does appear to be clearing but patient still has significant dysarthria and moments of garbled speech that may be simple incoherence as well (3) Serum lipase elevation Status: Acute Assessment & Plan: Secondary to his alcoholism. Recheck lipase in the morning Assessment 07/27/2016 Impression encephalopathy with confabulation and nystagmus-probable Wernieke's -MRI limited by motion, but without obvious abnormality Gait instability Alcoholic hepatitis-liver enzymes stable to improving Severe hepatic steatosis Thrombocytopenia-improving Elevated lipase without pancreatitis on CT or obvious symptoms of pancreatitis Anemia with elevated MCV-drop in hemoglobin since admission likely dilutional History of seizure disorder (none this hospitalization)-uncertain if alcohol related-chronically on seizure medication. Changed to Briviact yesterday on recommendation of neurologist because of possible intolerance to previous seizure medication. Hypomagnesemia Hypophosphatemia GERD Plan Continue IV thiamine as ordered PT and OT for strengthening-I think the patient would benefit from inpatient rehabilitation for continued treatment of encephalopathy with IV thiamine and for strengthening. If the patient does go home he will need 24-hour supervision. Because of his encephalopathy, he is not safe to be alone. Continue to monitor liver enzymes. Continue to advance diet as tolerated. DC IV fluids today. Continue lactulose for possible hepatic encephalopathy Patient would benefit from gastroenterology consult as an outpatient. The patient had severe hypophosphatemia which was treated with both IV and oral phosphate today. Recheck phosphorus tomorrow. Recheck magnesium tomorrow. Code Status Full Code, unverified Hospital Course Summary Disclaimer The hospital course summary below is not to be considered part of the above Progress Note. Hospital Course Summary Acute encephalopathy with confabulation/nystagmus -Likely Wernicke's from EtOH abuse vs. Hepatic encephalopathy -Dr. Plummer from neuro following -IV thiamine, folate, on lactulose as well -Wernickes tx Thiamine dose 500mg IV TID for 2 days, tomorrow start 250mg daily x 5 days, then 100mg daily -MRI done yesterday is limited due to artifact but no obvious abnormalities -Patient continues to be confused and confabulating despite several days of IV thiamine Alcohol Hepatitis -MDF 16, AST:ALT ratio consistent with EtOH abuse -Supportive tx with IV fluids, titrate down IV fluids, possibly off tomorrow -CT abd shows severe hepatic steatosis -Possibly some component of pancreatitis but clinical sx's not fully consistent- the patient is hungry, advance diet as tolerated Thrombocytopenia -EtOH abuse likely etiology -Monitor Anemia -MCV on high end -Check B12, folate -May be in part dilutional Seizure Disorder -Briviact started today -no seizures this hospitalization -Dr. Plummer continues to follow We'll consult PT and OT for gait instability. Patient may need inpatient rehabilitation versus usp if he is significantly unstable. Continue on IV thiamine. Advance diet as tolerated and decrease IV fluids as tolerated Check CBC, CMP, magnesium, phosphorus tomorrow. Start Ciloxan eyedrops Patient continues to confabulate fairly significantly. Continue IV thiamine, provide safe environment and monitor. Regarding GERD, will give Maalox now and start scheduled omeprazole. FELIX MCELROY MD Jul 29, 2016 19:31
--- NOTE | 2016-07-29 19:38 | NUR ---
SHIFT SUMMARY VSS. RA. DENIES PAIN. PATIENT HAS IMPROVED FROM YESTERDAY. ABLE TO HAVE SOME CONVERSATION. SPEECH HAS MUCH IMPROVED AND GAIT IS A LITTLE BETTER. UP WITH X1 ASSIST, GB, AND WALKER. FREQUENT URINATION. PATIENT BAILS AND DOES NOT USE CALL LIGHT. GOOD APPETITE AND INTAKE. PATIENT PULLED OUT OWN IV, RN RESTARTED.
[2016-07-30 00:03] VITALS: BP 110/72; PULSE 93; RESP 20; TEMP 97.3; O2SAT 98
--- NOTE | 2016-07-30 04:48 | NUR ---
SHIFT SUMMARY PT CALLS SOME TIMES TO USE THE BATHROOM. OTHER TIMES HE SITS UP ON THE SIDE OF THE BED UNTIL STAFF COMES. GAIT IS UNSTEADY NOTED IT WAS DIFFICULT FOR HIM TO MANAGE THE FWW. STATES HE IS VERY TRIED. HE HAS BEEN SLEEPING FOR LONG PERIODS. AWAKING TO USE THE BATHROOM, CONTINUES TO HAVE LOOSE STOOL. NOTED WHEN HE WENT TO INGREDIENT MIXER A GLASS HE WOULD REACH OFF 2-3 INCHES FROM THE GLASS. CALL LIGHT WITHIN REACH. BED ALARM ON FOR PT SAFETY.
[2016-07-30 04:58] VITALS: BP 106/66; PULSE 98; RESP 14; TEMP 97.3; O2SAT 96
[2016-07-30 05:10] LABS: HCT - HEMATOCRIT 27.9 % (41-53); HGB - HEMOGLOBIN 9.2 GM/DL (13.5-17.5); MEAN CORPUSCULAR HGB 35.2 UUG (26-34); MEAN CORPUSCULAR VOLUME 106.9 UM3 (80-100); MEAN PLATELET VOLUME 11.1 UM3 (9.4-12.4); RED BLOOD COUNT 2.61 M/MM3 (4.50-5.90); WBC - WHITE BLOOD COUNT 6.7 T/MM3 (4.5-11.0)
[2016-07-30 05:27] LABS: ALBUMIN 2.5 G/DL (3.5-5.0); ALBUMIN/GLOBULIN RATIO 0.9 RATIO (1.1-2.2); ALKALINE PHOSPHATASE 229 U/L (38-126); ALT (SGPT) 163 U/L (21-72); ANION GAP 8 MEQ/L (5-15); AST (SGOT) 357 U/L (17-59); BUN/CREATININE RATIO 4 RATIO (6-26); CALCIUM 8.4 MG/DL (8.4-10.2); CHLORIDE 109 MEQ/L (98-107); CO2 - CARBON DIOXIDE 22 MEQ/L (22-30); CREATININE 0.7 MG/DL (0.8-1.5); GLOMERULAR FILTRATION RATE 127; GLUCOSE 94 MG/DL (75-110); LIPASE 459 U/L (23-300); POTASSIUM 3.8 MEQ/L (3.6-5); SODIUM 139 MEQ/L (134-144); TOTAL PROTEIN 5.2 G/DL (6.3-8.2)
[2016-07-30] MEDS: OMEPRAZOLE 20 MG CAPSULE PO SCH (06:25)
--- NOTE | 2016-07-30 07:43 | NUR ---
[facility] Student Nurse Charting from 07/29/2016 Reviewed by this instructor.
[2016-07-30 08:56] VITALS: BP 121/78; PULSE 99; RESP 16; TEMP 97.4; O2SAT 99
[2016-07-30] MEDS: BRIVARACETAM 50 MG PO SCH (09:00)
[2016-07-30] MEDS: LACTULOSE 20 GM/30 ML UD PO SCH ×2 (09:00→14:40)
[2016-07-30] MEDS: CIPROFLOXACIN 0.3% BOTH EYES SCH ×2 (09:01→13:24)
[2016-07-30] MEDS: FOLIC ACID 5 MG/ML INJECTION IV SCH (09:01)
[2016-07-30] MEDS: EYE BOTH EYES SCH ×2 (09:01→13:24)
[2016-07-30] MEDS: NORMAL SALINE IV SCH (09:02)
[2016-07-30] MEDS: THIAMINE IV SCH (09:02)
[2016-07-30] MEDS ORDERED: NORMAL SALINE 500 ML IV PRN (09:15)
[2016-07-30 11:35] VITALS: BP 103/61; PULSE 91; RESP 16; TEMP 96.9; O2SAT 97
--- NOTE | 2016-07-30 12:20 | NUR ---
CM CM CALLED TO ROOM TO DISCUSS STATUS OF IRU SCREEN WITH FAMILY. THEY ARE MADE AWARE THAT PER CM CONVERSATION WITH BILLIE, THEY ARE AWAITING APPROVAL FROM [facility] FOR IRU STAY. THEY VERBALIZED UNDERSTANDING.
--- NOTE | 2016-07-30 12:58 | NUR ---
CM PT HAS BEEN ACCEPTED TO IRU AND IT HAS BEEN AUTHORIZED BY [employer] PER PHONE CONVERSATION. DR. MCELROY IS MADE AWARE.
--- NOTE | 2016-07-30 13:14 | NUR ---
CM CM IN TO VISIT WITH PT AND FAMILY. THEY ARE MADE AWARE THAT INSURANCE HAS APPROVED IRU STAY. THEY ARE MADE AWARE THAT DC TO IRU IS POSSIBLE TODAY.
[2016-07-30] MEDS ORDERED: THIA100T13 PO (14:19)
[2016-07-30] MEDS ORDERED: BRIV50TA PO (14:19)
[2016-07-30] MEDS ORDERED: OMEP40CA52 PO (14:19)
[2016-07-30] MEDS ORDERED: LACT10SO9 PO (14:19)
[2016-07-30] MEDS ORDERED: FOLI5VIA2 IV (14:19)
[2016-07-30] MEDS ORDERED: IBUP-1546 PO (14:26)
--- NOTE | 2016-07-30 14:30 | NUR ---
STATUS PT A&OX3 TODAY. STILL HAS OCCASIONAL CONFUSION. PT IS ON RA. UP IN ROOM/HALLS WITH 1 ASSIST AND GAIT BELT, WALKER. NO PRN'S GIVEN TODAY. ATE MEALS WITHOUT DIFFICULTY.
[2016-07-30] MEDS ORDERED: FOLI1TAB15 PO (14:46)
--- NOTE | 2016-07-30 14:50 | NUR ---
DISCHARGE DISCHARGE INSTRUCTIONS EXPLAINED TO PATIENT. DENIES QUESTIONS. BELONGINGS PACKED AND SENT WITH PATIENT. PT DISCHARGED TO IRU ROOM 175.
[2016-08-06] MEDS ORDERED: BRIV50TA PO (08:56)
[2016-08-06] MEDS ORDERED: NICO1PAT15 TD (08:56)
[2016-08-06] MEDS ORDERED: SUCR1TAB20 PO (08:56)
[2016-08-06] MEDS ORDERED: LACT10SO9 PO (08:56)
[2016-08-06] MEDS ORDERED: ONDA4TAB10 PO (08:56)
== END 2016-07-30 14:50 | DRG 640 ==
LOC: ED 16:16 → EEVIPCON 19:59 → EDHOLD 19:59 → MED 20:36
PROVIDERS: ADMIT Emergency Medicine; ATTEND Internal Medicine
PROC: B030ZZZ Magnetic Resonance Imaging (MRI) of Brain (ICD-10-PCS; principal; 2016-07-25)
PROC: B030YZZ Magnetic Resonance Imaging (MRI) of Brain using Other Contrast (ICD-10-PCS; 2016-07-25)
DX: E51.2 Wernicke's encephalopathy (principal); K72.00 Acute and subacute hepatic failure without coma; E87.2 Acidosis; F10.10 Alcohol abuse, uncomplicated; K70.10 Alcoholic hepatitis without ascites; K76.0 Fatty (change of) liver, not elsewhere classified; F17.210 Nicotine dependence, cigarettes, uncomplicated; E87.6 Hypokalemia; D69.6 Thrombocytopenia, unspecified; D53.9 Nutritional anemia, unspecified; E83.42 Hypomagnesemia; E86.0 Dehydration; F32.9 Major depressive disorder, single episode, unspecified; F41.9 Anxiety disorder, unspecified; K21.9 Gastro-esophageal reflux disease without esophagitis; E83.39 Other disorders of phosphorus metabolism; R26.9 Unspecified abnormalities of gait and mobility; Z79.899 Other long term (current) drug therapy; Y90.0 Blood alcohol level of less than 20 mg/100 ml
CPT/HCPCS: 36415; 80053; 80069; 80074; 80306; 80307; 81001; 82140; 82248; 82550; 82607; 82746; 82948; 83690; 83735; 84100; 84439; 84443; 85007; 85025; 85027; 85610; 85730; 93005; 96361; 96374; 96376; 99406; 99407